=== PATIENT | male | born 1965 | race Caucasian/White ===

== ENCOUNTER 2023-06-01 13:47 | Outpatient (RCR) | payer OTHER, SELFPAY | END 2023-07-03 16:12 | disposition home or self-care (01) | LOC: OT 13:47 | PROVIDERS: PCP Specialist; Visit Provider Orthopaedic Surgery | DX: S60.411D Abrasion of left index finger, subsequent encounter (principal); S61.213D Laceration without foreign body of left middle finger without damage to nail, subsequent encounter; S67.10XD Crushing injury of unspecified finger(s), subsequent encounter; S62.623D Displaced fracture of middle phalanx of left middle finger, subsequent encounter for fracture with routine healing; S62.625D Displaced fracture of middle phalanx of left ring finger, subsequent encounter for fracture with routine healing | CPT/HCPCS: 97018; 97110; 97165; 97530 ==

== ENCOUNTER 2024-11-02 03:02 | Emergency (ER) | payer OTHER, SELFPAY ==
[2024-11-02 03:06] VITALS: BP 147/100; PULSE 79; TEMP 37; O2SAT 98; BMI 34.6
--- NOTE | 2024-11-02 03:18 | CT_ITS ---
The [address] [address] Patient Name: TAYLOR CASANOVA MRN: [id number] date: 1965 Sex: M Assigned Patient Location: ER Current Patient Location: ER Accession/Order Number: [id number] Exam Date: 11/02/2024 03:50 Report Date: 11/02/2024 04:11 At the request of: REINA MARKER Procedure: CT abdomen pelvis wo con EXAM: CT abdomen pelvis wo con HISTORY: right flank pain COMPARISON: None. TECHNIQUE: Noncontrast axial CT images through the abdomen and pelvis were obtained with coronal and sagittal reformats. Dose reduction techniques were achieved by using automated exposure control and/or adjustment of mA and/or kV according to patient size and/or use of iterative reconstruction technique. FINDINGS: There is a calcified granuloma in the right middle lobe. There is nonspecific elevation of the left hemidiaphragm with adjacent atelectasis. Abdomen: Please note that the sensitivity for detection of focal lesions or vascular disease is markedly reduced without intravenous contrast. Splenic calcifications are suggestive of prior granulomatous disease. Otherwise, the liver and spleen are unremarkable. There is no intra or extrahepatic biliary duct dilatation. The gallbladder is surgically absent. There is a 0.3 cm calculus in the mid right ureter with mild right hydroureter and hydronephrosis. There is a left renal cyst. The pancreas, adrenal glands, and bowel loops, including the appendix, are unremarkable. There is no mesenteric or retroperitoneal lymphadenopathy. There is a tiny fat-containing umbilical hernia. Pelvis: The bladder demonstrates wall thickening. The rectum is unremarkable. There is no iliac or inguinal lymphadenopathy. There is mild prostatomegaly. There is mild atherosclerotic disease. Bone windows show no aggressive osseous lesions. CT/CT abdomen pelvis wo con IMPRESSION: 1. There is a 0.3 cm calculus in the mid right ureter with mild right hydroureter and hydronephrosis. 2. Normal appendix. 3. Mild prostatomegaly. 4. Urinary bladder wall thickening which could be secondary to chronic outlet obstruction from the prostatomegaly; however, please correlate with urinalysis for infection. Electronically authenticated by: Aleah RHODES Date: 11/02/2024 04:11
[2024-11-02] MEDS: KETOROLAC TROMETHAMINE 30 MG/ML VIAL IVP (03:39)
[2024-11-02] MEDS: 0.9 % SODIUM CHLORIDE 1,000 ML 1000 ML IV (03:39)
--- NOTE | 2024-11-02 03:41 | ED_ITS ---
HPI HPI - Back Pain/Injury General Chief Complaint: Back Pain/Injury Stated Complaint: BACK PAIN Time Seen by Provider: 11/02/24 03:09 Source: patient Mode of arrival: walk-in Limitations: no limitations History of Present Illness HPI Narrative: 59-year-old male with a history of kidney stones presents for evaluation of right low back pain. The patient states the pain started several days. It started in his lower abdomen. He states it is not currently in his lower abdomen but when he does turn over in bed it shoots into his lower abdomen and feels like it moves. He denies any nausea or vomiting. He denies any change in his urine. He denies any injury. 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 He does not recall any in jury. He states the pain feels like your back feels when you have been driving for a long period of time it is an aching sensation. It does not radiate into his buttocks or down his legs. There is no pain on the left side of his back or in the remainder of his abdomen. The pain does not radiate into his testicles. He denies any chest pain. He states he has had ongoing shortness of breath sin ce having influenza last spring but this is unchanged. He does not smoke. Related Data Home Medications ?Medication ?Instructions ?Recorded ?Confirmed atorvastatin 10 mg tablet mg 11/02/24 losartan 50 mg-hydrochlorothiazide tab 11/02/24 12.5 mg tablet Allergies Allergy/AdvReac Type Severity Reaction Status Date / Time No Known Drug Allergies Allergy Verified 11/02/24 03:10 Opioid HPI Opioid Management Most Recent Opioid Data: No Data to Display Review of Systems ROS Status of ROS 10 or more systems reviewed and unremark able except as noted in history and below PFSH PFSH Social History Little interest or pleasure in doing things: not at all Feeling down, depressed, or hopeless: not at all Exam Narrative Exam Narrative: Vital signs and Nursing Notes reviewed: Patient is afebrile with a normal pulse, blood pressure is elevated at 147/100, he is not hypoxic with pulse ox of 98% on room air General: Awake, alert, oriented, no acute distress, lying comfortably on the stretcher-he moves easily about the stretcher without any sign of distress HEENT: Normocephalic atraumatic, mucous membranes are moist and pink, eyes are clear, normal conjunctiva, vision is grossly intact Chest: Lungs are clear to auscultation with good air entry, there is no wheezing rhonchi or rales appreciated no accessory muscle use, patient is speaking in complete sentences-no chest wall tenderness to palpation CVS: Regular rate and rhythm S1-S2, no murmurs rubs or gallops, pulses are brisk and equal bilaterally ABD: Soft, nondistended, nontender, no rebound guarding or rigidity, bowel sounds are normal, no pulsatile masses appreciated, no reproducible tenderness in the upper or lower abdomen. Musc: No midline bony vertebral tenderness, there is some mild tenderness in the left lateral lumbar region. There is no skin rash in this area. No appreciable muscle spasm Extremities: Moving all extremities, no lower extremity tenderness or swelling noted, negative Homans' sign, pulses are brisk and equal bilaterally Skin: Skin is tanned and mildly red, patient is currently tanning for an upcoming vacation Neuro: No focal deficits Constitutional Vital Signs, click to edit/add: Last Vital Signs Temp 98.6 F 11/02/24 03:06 Pulse 79 11/02/24 03:06 Resp 16 11/02/24 03:06 BP 149/85 H 11/02/24 03:48 Pulse Ox 98 11/02/24 03:06 O2 Del Method Room Air 11/02/24 03:06 Course Vital Signs Vital signs: Vital Signs Temperature 98.6 F 11/02/24 03:06 Pulse Rate 79 11/02/24 03:06 Respiratory Rate 16 11/02/24 03:06 Blood Pressure 147/100 H 11/02/24 03:06 Pulse Oximetry 98 11/02/24 03:06 Oxygen Delivery Method Room Air 11/02/24 03:06 Temperature 98.6 F 11/02/24 03:06 Pulse Rate 79 11/02/24 03:06 Respiratory Rate 16 11/02/24 03:06 Blood Pressure 149/85 H 11/02/24 03:48 Pulse Oximetry 98 11/02/24 03:06 Oxygen Delivery Method Room Air 11/02/24 03:06 MDM - Back Pain/Injury MDM Narrative Medical decision making narrative: This 59-year-old male, non-smoker with a history of hypertension presents for evaluation of several days of pain in his right lower back. He has used Tylenol recently but had a hard time sleeping tonight due to the pain. He states when he rolls over in bed he feels like the pain moves into his right lower quadrant. He states the pain started in his right lower quadrant and has since moved to the right low back. There is no radiation into his buttocks or legs. He has no chest pain dizziness or syncope. His physical exam is benign with some mild tenderness in the right lower lateral lumbar region. There was no abdominal tenderness. His neuroexam is normal. An IV is placed and routine labs are ordered. There is large blood with 10-20 red blood cells per high-power field in his urine but the urine does not show any sign of infection. He has a normal white count and hemoglobin. Electrolytes are normal with the exception of a mildly elevated creatinine at 1.51. Liver function tests are normal. CT scan shows a 3 mm stone in the left distal ureter with mild hydroureter and hydronephrosis. The results of the labs and CT scan were discussed with the patient and his . He states his pain is improved but he is still having some degree of pain and will be medicated with a dose of [place] and Zofran prior to discharge. He will be discharged home with prescription for [place] Zofran and Flomax with recommendation for close follow-up with his family physician, straining his urine and return for worsening symptoms or any concerns. Medical Records Medical records narrative: [place] [address] CT Scan Report Signed Patient: TAYLOR CASANOVA MR#: [id number] : 1965 Acct:[id number] Age/Sex: 59 / M ADM Date: 11/02/24 Loc: ER Attending Dr: Ordering Physician: Irma Tucker Date of Service: 11/02/24 Procedure(s): CT abdomen pelvis wo con Accession Number(s): [id number] cc: Lottie Rocha M.D.~ The [place] [id number] Patient Name: TAYLOR CASANOVA MRN: [id number] date: 1965 Sex: M Assigned Patient Location: ER Current Patient Location: ER Accession/Order Number: [id number] Exam Date: 11/02/2024 03:50 Report Date: 11/02/2024 04:11 At the request of: IRMA MARKER Procedure: CT abdomen pelvis wo con EXAM: CT abdomen pelvis wo con HISTORY: right flank pain COMPARISON: None. TECHNIQUE: Noncontrast axial CT images through the abdomen and pelvis were obtained with coronal and sagittal reformats. Dose reduction techniques were achieved by using automated exposure control and/or adjustment of mA and/or kV according to patient size and/or use of iterative reconstruction technique. FINDINGS: There is a calcified granuloma in the right middle lobe. There is nonspecific elevation of the left hemidiaphragm with adjacent atelectasis. Abdomen: Please note that the sensitivity for detection of focal lesions or vascular disease is markedly reduced without intravenous contrast. Splenic calcifications are suggestive of prior granulomatous disease. Otherwise, the liver and spleen are unremarkable. There is no intra or extrahepatic biliary duct dilatation. The gallbladder is surgically absent. There is a 0.3 cm calculus in the mid right ureter with mild right hydroureter and hydronephrosis. There is a left renal cyst. The pancreas, adrenal glands, and bowel loops, including the appendix, are unremarkable. There is no mesenteric or retroperitoneal lymphadenopathy. There is a tiny fat-containing umbilical hernia. Pelvis: The bladder demonstrates wall thickening. The rectum is unremarkable. There is no iliac or inguinal lymphadenopathy. There is mild prostatomegaly. There is mild atherosclerotic disease. Bone windows show no aggressive osseous lesions. CT/CT abdomen pelvis wo con IMPRESSION: 1. There is a 0.3 cm calculus in the mid right ureter with mild right hydroureter and hydronephrosis. 2. Normal appendix. 3. Mild prostatomegaly. 4. Urinary bladder wall thickening which could be secondary to chronic outlet obstruction from the prostatomegaly; however, please correlate with urinalysis for infection. Electronically authenticated by: Aleah RHODES Date: 11/02/2024 04:11 Lab Data Labs: Lab Results 11/02/24 11/02/24 Range/Units 03:35 03:41 WBC 11.3 H (4.0-11.0) 10^3/uL RBC 5.48 (4.70-6.10) 10^6/uL Hgb 16.2 (14.0-18.0) g/dL Hct 48.0 (42.0-54.0) % MCV 87.6 (80.0-94.0) fL MCH 29.6 (25.9-34.0) pg MCHC 33.8 (29.9-35.2) g/dL RDW 12.9 (11.0-15.0) % Plt Count 209 (150-450) 10^3/uL MPV 11.2 (9.5-13.5) fL Neut % (Auto) 63.8 (43.0-75.0) % Lymph % (Auto) 22.7 (20.5-60.0) % [place] % (Auto) 7.4 (1.7-12.0) % Eos % (Auto) 4.0 (0.9-7.0) % Baso % (Auto) 0.6 (0.2-2.0) % Neut # (Auto) 7.2 H (1.4-6.5) 10^3/uL Lymph # (Auto) 2.6 (1.2-3.8) 10^3/uL [place] # (Auto) 0.8 (0.3-0.8) 10^3/uL Eos # (Auto) 0.5 (0.0-0.7) 10^3/uL Baso # (Auto) 0.1 (0.0-0.1) 10^3/uL Abs Immat Gran (auto) 0.17 H (0.00-0.03) 10^3/uL Imm/Tot Granulo (auto) 1.5 H (0.0-0.5) % Sodium 140 (136-145) mmol/L Potassium 3.7 (3.5-5.1) mmol/L Chloride 105 (98-107) mmol/L Carbon Dioxide 24.3 (21.0-32.0) mmol/L Anion Gap 14.4 BUN 15.0 (7.0-18.0) mg/dL Creatinine 1.51 H (0.70-1.30) mg/dL Est GFR ( Amer) 58 L (>=60 mL/min/1.73m^2) Est GFR (Non-Af Amer) 48 L (>=60 mL/min/1.73m^2) BUN/Creatinine Ratio 9.9 Glucose 130 H (74-106) mg/dL Calcium 9.1 (8.5-10.1) mg/dL Total Bilirubin 0.4 (0.2-1.0) mg/dL AST <5 L (15-37) U/L ALT 19 (16-63) U/L Alkaline Phosphatase 73 (46-116) U/L Total Protein 7.2 (6.4-8.2) g/dL Albumin 4.4 (3.4-5.0) g/dL Globulin 2.8 g/dL Albumin/Globulin Ratio 1.6 Urine Color Yellow (YELLOW) Urine Clarity Clear (CLEAR) Urine pH 5.5 (5.0-9.0) Ur Specific [place] >=1.030 A (1.005-1.025) Urine Protein Trace (NEG/TRACE) mg/dL Urine Glucose (UA) Negative (NEGATIVE) mg/dL Urine Ketones Negative (NEGATIVE) mg/dL Urine Occult Blood Large A (NEGATIVE) Urine Nitrite Negative (NEGATIVE) Urine Bilirubin Negative (NEGATIVE) Urine Urobilinogen 0.2 (0.2-1.0) EU/dL Ur Leukocyte Esterase Negative (NEGATIVE) Urine RBC 10-20 A (0-2) #/HPF Urine WBC 0-2 A (NONE SEEN) #/HPF Ur Squamous Epith Cells Rare (NONE/RARE) #/LPF Urine Crystals Seen A (None Seen) #/HPF Calcium Oxalate Crystal Few Urine Bacteria None seen (NONE SEEN) #/HPF Urine Casts None seen (NONE SEEN) #/LPF Urine Mucus Small A (NONE SEEN) Ur Culture Indicated? No Discharge Plan Discharge Chief Complaint: Back Pain/Injury Clinical Impression: Kidney stone on right side Prescriptions / Home Meds: No Action atorvastatin 10 mg tablet losartan-hydrochlorothiazide 50-12.5 mg tablet Print Language: Indonesian Referrals: Lottie Rocha MD [Primary Care Provider] - 1 week
[2024-11-02 03:48] VITALS: BP 149/85
[2024-11-02 03:53] LABS: Basophils Absolute Auto 0.1 10^3/uL (0.0-0.1); Basophils Percent Auto 0.6 % (0.2-2.0); Eosinophils Absolute Auto 0.5 10^3/uL (0.0-0.7); Hemoglobin 16.2 g/dL (14.0-18.0); Immature Granulocytes Abs Auto 0.17 10^3/uL (0.00-0.03); Immature Granulocytes Pct Auto 1.5 % (0.0-0.5); Lymphocytes Absolute Auto 2.6 10^3/uL (1.2-3.8); Lymphocytes Percent Auto 22.7 % (20.5-60.0); Mean Corpuscular HGB Conc 33.8 g/dL (29.9-35.2); Mean Corpuscular Hemoglobin 29.6 pg (25.9-34.0); Mean Corpuscular Volume 87.6 fL (80.0-94.0); Mean Platelet Volume 11.2 fL (9.5-13.5); Monocytes Absolute Auto 0.8 10^3/uL (0.3-0.8); Monocytes Percent Auto 7.4 % (1.7-12.0); Neutrophils Absolute Auto 7.2 10^3/uL (1.4-6.5); Neutrophils Percent Auto 63.8 % (43.0-75.0); Platelet Count 209 10^3/uL (150-450); Red Blood Count 5.48 10^6/uL (4.70-6.10); Red Cell Distribution Width 12.9 % (11.0-15.0); White Blood Count 11.3 10^3/uL (4.0-11.0)
[2024-11-02 03:54] LABS: Bilirubin Urine NEGATIVE (NEGATIVE); Blood Urine LARGE (NEGATIVE); Clarity Urine CLEAR (CLEAR); Color Urine YELLOW (YELLOW); Glucose Urine UA NEGATIVE (NEGATIVE); Ketones Urine NEGATIVE (NEGATIVE); Leukocyte Esterase Urine NEGATIVE (NEGATIVE); Nitrite Urine NEGATIVE (NEGATIVE); Protein Urine TRACE mg/dL (NEG/TRACE); Specific Gravity Urine >=1.030 (1.005-1.025); Urobilinogen Urine 0.2 EU/dL (0.2-1.0); pH Urine 5.5 (5.0-9.0)
[2024-11-02 04:07] LABS: Bacteria Urine NONE SEEN #/HPF (NONE SEEN); Calcium Oxalate Crystals Urine FEW; Cast Seen? NONE SEEN #/LPF (NONE SEEN); Crystals Seen? Seen #/HPF (None Seen); Mucus Urine SMALL (NONE SEEN); Squamous Epithelial Cell Urine RARE #/LPF (NONE/RARE); Urine Culture Indicated NO; WBC Urine 0-2 #/HPF (NONE SEEN)
[2024-11-02 04:08] LABS: Alanine Aminotransferase 19 U/L (16-63); Albumin Globulin Ratio 1.6; Albumin Level 4.4 g/dL (3.4-5.0); Alkaline Phosphatase 73 U/L (46-116); Anion Gap 14.4; Aspartate Amino Transferase <5 U/L (15-37); BUN Creatinine Ratio 9.9; Bilirubin Total 0.4 mg/dL (0.2-1.0); Calcium 9.1 mg/dL (8.5-10.1); Carbon Dioxide 24.3 mmol/L (21.0-32.0); Chloride 105 mmol/L (98-107); Estimated GFR (African America 58 (>=60 mL/min/1.73m^2); Estimated GFR (Non-African Ame 48 (>=60 mL/min/1.73m^2); Globulin 2.8 g/dL; Glucose 130 mg/dL (74-106); Potassium 3.7 mmol/L (3.5-5.1); Sodium 140 mmol/L (136-145); Total Protein 7.2 g/dL (6.4-8.2)
[2024-11-02] MEDS: ONDANSETRON 4 MG RAPDIS TABLET SL (05:01)
[2024-11-02] MEDS: HYDROCODONE/ACET 5-325 MG TABLET 2 TAB PO (05:01)
[2024-11-02] MEDS: HYDROCODONE/ACET 5-325 MG TABLET 1 TAB PO (05:01)
== END 2024-11-02 05:08 | disposition home or self-care (01) ==
PROVIDERS: Emergency Provider Emergency Medicine; PCP Family Medicine
DX: N13.2 Hydronephrosis with renal and ureteral calculous obstruction (principal); Z87.442 Personal history of urinary calculi; Z90.49 Acquired absence of other specified parts of digestive tract; I10 Essential (primary) hypertension
CPT/HCPCS: 36415; 74176; 80053; 81001; 85025; 96374; 99284; J1885; Q0162

== ENCOUNTER 2024-12-30 06:32 | Outpatient (OUT) | payer OTHER, SELFPAY ==
--- OUTSIDE RECORDS SUMMARY | 2024-12-30 06:36 | XMS_ITS | CCD ---
Author Organization [facility] Care Team Providers Care Supervisor [employer] Name Role Phone DO Piter Chairez Attending Provider MD Precious Marquez Primary Care Provider PRECIOUS MARQUEZ Primary Care Physician Precious MARQUEZ Referring Unavailable NILL, Josue Loya Attending Unavailable NILL, Josue Loya Referring Unavailable NILL, Josue Loya Attending Unavailable NILL, Josue Loya Admitting Unavailable MARQUEZ, Precious Valdez Referring Unavailable NILL, Josue Loya Attending Unavailable MARQUEZ, DR PRECIOUS Valdez Consulting Unavailable MARQUEZ, DR PRECIOUS Valdez Primary Care Unavailable MARQUEZ, DR PRECIOUS Valdez Admitting Unavailable MARQUEZ, DR PRECIOUS Valdez Attending Unavailable MARQUEZ, DR PRECIOUS Valdez Primary Care Unavailable MARQUEZ, DR PRECIOUS Valdez Admitting Unavailable MARQUEZ, DR PRECIOUS Valdez Attending Unavailable MARQUEZ, DR PRECIOUS Valdez Consulting Unavailable Esha Valladares Unavailable MD Precious Marquez Primary Care Provider Barbara, IT SECURITY MANAGER- Shyla Valdez Emergency Provider Shyla Jimenez Admitting Unavailable Shyla Jimenez Attending Unavailable Precious Marquez Primary Care Unavailable Precious Marquez Primary Care Unavailable Aryan Chairez Admitting Unavailab Aryan Landaverde Attending Unavailab Lottie Skinner Unavailable Pascual OREILLY Attending Unavailable Allergies Allergy Classification Reported Allergen(s) Allergy Type Date of Onset Reaction(s) Facility (2 sources) Lisinopril; Translations: [lisinopril] Drug Allergy Cough (finding) [facility] Medications Current Medications Medication Drug Class(es) Dates Sig (Normalized) Sig (Original) atorvastatin 10 mg oral tablet (12 sources) HMG-CoA Reductase Inhibitor Start: 12-04-2023 End: 10-03-2024 take 1 tablet by mouth once daily Atorvastatin 10 mg tablet Active 10 MG PO Daily October 03, 2024 4:06pm take 1 tablet by diane th every twenty-four hours Atorvastatin Calcium 10 MG 1 tablet Oral Once a day for 90 days Active Ciprofloxacin-Dexamethasone 0.3-0.1 % drops,suspension (1 source) Start: 12-29-2024 Ciprofloxacin-Dexamethasone 0.3-0.1 % drops,suspension Active 4 DROPS EAR-BOTH Twice daily 7.5 December 29, 2024 12:00am hydroCHLOROthiazide 12.5 mg / losartan potassium 50 mg oral tablet (13 sources) Thiazide Diuretic, Angiotensin 2 Receptor Parveen Start: 12-04-2023 End: 12-05-2024 take 1 tablet by mouth once daily Losartan-Hydrochlorothiazide 50-12.5 mg tablet Active 1 TAB PO Daily December 05, 2024 4:24pm Start: 05-28-2022 take 1 tablet by diane th once daily hydrochlorothiazide-losartan 12.5 mg-50 mg Tab 1 tab(s), Oral, Daily, Refill(s) 0, High blood pressure Start Date: 05/28/22 Status: Ordered Losartan Potassi um-HCTZ 50-12.5 MG Oral for 90 Days Active omeprazole 40 mg delayed release oral capsule (1 source) Proton Pump Inhibitor Start: 05-28-2022 omeprazo le 40 mg Cap-DR 40 mg = 1 cap(s), Oral, Daily, Refills(s) 0, Control of stomach acid Start Date: 05/28/22 Status: Ordered Completed/Discontinued Medications Medication Drug Class(es) Dates Sig (Normalized) Sig (Original) azithromycin 250 mg oral tablet (1 source) Macrolide Antimicrobial Start: 12-04-2023 End: 12-29-2024 Azithromycin 250 mg tablet Discontinued 0 PO .COMPLEX December 04, 2023 1:00am December 29, 2024 9:21am For 250 mg dose pack: take 500 mg today (day 1), then 250 mg for 4 days (days 2-5) PO benzonatate 200 mg oral capsule (1 source) Non-narcotic Antitussive Start: 12-04-2023 End: 12-29-2024 Benzonatate 200 mg capsule Discontinued 200 MG PO 2-3 TIMES PER DAY as needed for cough December 04, 2023 1:00am December 29, 2024 9:21am cephalexin 500 mg oral capsule (4 sources) Cephalosporin Antibacterial Start: 04-17-2023 End: 12-29-2024 take 1 capsule by mouth twice daily Cephalexin 500 mg capsule Discontinued 500 MG PO Twice daily 14 April 17, 2023 12:00am December 29, 2024 9:21am colestipol hydrochloride 1000 mg oral tablet (11 sources) Bile Acid Sequestrant Start: 12-04-2023 End: 12-29-2024 take 2 tablets by mouth once daily Colestipol 1 gram tablet Discontinued 1 GM PO Daily December 04, 2023 1:00am December 29, 2024 9:21am FreeTextSi tablets Orally Once a day; Note: Source Status: Taking; Provider: Blaine Balbuena ( ) Start: 05-28-2022 [facility] Colestid 1 g oral tablet 1 gm = 1 tab(s), Oral, Daily, Refills(s) 0, High cholesterol Start Date: 05/28/22 Status: [facility] Colestipol HCl 1 GM 2 tablets Orally Once a day Active take 2 tablets by mo [facility] every twenty-four hours Colestipol HCl 1 GM 2 tablets Orally Once a day Active ibuprofen 800 mg oral tablet (8 sources) Nonsteroidal Anti-inflammatory Drug Start: 09-12-2024 End: 12-29-2024 take 1 tablet by mouth three times daily as needed for pain Ibuprofen 800 mg tablet Discontinued 800 MG PO Three times daily as needed for pain 270 90 September 12, 2024 9:12am December 29, 2024 9:36am Start: 02-17-2024 End: 09-12-2024 take 1 tablet by mouth twice daily at mealtime as needed Ibuprofen 800 mg tablet Discontinued 0 .ROUTE .COMPLEX 60 February 17, 2024 8:59am September 12, 2024 9:13am TAKE 1 TABLET BY MOUTH TWICE A DAY WITH FOOD OR MILK NEEDED FOR 30 DAYS Start: 12-04-2023 End: 02-17-2024 take 1 tablet by mouth twice daily at mealtime Ibuprofen 800 mg tablet Discontinued 800 MG PO Twice daily with meals December 04, 2023 1:00am February 17, 2024 8:59am FreeTextSi tablet with food or milk as needed Orally Twice a day; Note: Source Status: Taking; Refills: 2; Qty: 180 Tablet; Provider: Blaine Loya Start: 09-08-2023 take 1 tablet by diane th twice daily at mealtime as needed Ibuprofen 800 MG 1 tablet with food or milk as needed Orally Twice a day for 90 days Aug, Active Problems Active Problems Problem Classification Problem Date Documented Date Episodic/Chronic Chronic obstructive pulmonary disease and bronchiectasis (1 source) Bronchitis; Translations: [Bronchitis, not specified as acute or chronic] 12-07-2023 Episodic Crushing injury or internal injury (9 sources) Crushing injury of unspecified finger(s), initial encounter; Translations: [Closed crush injury, finger, multiple] Episodic Disorders of lipid metabolism (13 sources) Pure hypercholesterolemia, unspecified; Translations: [Pure hypercholesterolemia] Onset: 09-25-2022 Chronic Esophageal disorders (1 source) Gastroesophageal reflux disease 05-28-2022 Chronic Essential hypertension (10 sources) Hypertensive disorder; Translations: [Essential hypertension] 06-03-2015 Chronic Fracture of upper limb (20 sources) Displaced fracture of middle phalanx of left middle finger, initial encounter for closed fracture; Translations: [Displaced fracture of middle phalanx of left ring finger, initial encounter for closed fracture] Episodic Comment on above: Problem List clean-u p per request of Phys. EHR Cmte Noninfectious gastroenteritis (1 source) Chronic diarrhea 05-28-2022 Episodic Open wounds of extremities (16 sources) Laceration without foreign body of left middle finger without damage to nail, initial encounter; Translations: [Laceration of finger] Episodic Comment on above: Problem List clean-u p per request of Phys. EHR Cmte Other ear and sense organ disorders (1 source) Otitis externa; Translations: [Unspecified otitis externa, unspecified ear] 12-29-2024 Chronic Other ear and sense organ disorders (1 source) Unspecified otitis externa, unspecified ear; Translations: [Infective otitis externa, unspecified] 12-29-2024 Chronic Other nervous system disorders (9 sources) Carpal tunnel syndrome; Translations: [Carpal tunnel syndrome, unspecified upper limb] Chronic Other nutritional; endocrine; and metabolic disorders (1 source) Body mass index 30+ - obesity 06-03-2022 Chronic Other screening for suspected conditions (not mental disorders or infectious disease) (5 sources) Screening for malignant neoplasm of colon done; Translations: [Encounter for screening for malignant neoplasm of colon] Onset: 06-16-2022 Episodic Sprains and strains (1 source) Rupture of anterior cruciate ligament 12-15-2011 Episodic Substance-related disorders (1 source) Smoker 05-28-2022 Chronic Comment on above: Added secondary to d ocumentation in Social History. Superficial injury; contusion (9 sources) Abrasion of left index finger, initial encounter; Translations: [Abrasion of left index finger] Episodic Unclassified (1 source) Patient encounter status 06-03-2022 Unclassified (1 source) Laceration without foreign body of left middle finger without damage to nail, initial encounter; Translations: [Laceration without foreign body of left middle finger without damage to nail, initial encounter] Onset: 04-17-2023 Past or Other Problems Problem Classification Problem Date Documented Date Episodic/Chronic Other connective tissue disease (1 source) Other symptoms and signs involving the musculoskeletal system; Translations: [Other symptoms and signs involving the musculoskeletal system] Onset: 06-25-2022 Episodic Results Test Name Value Interpretation Reference Range Facility Basophils Auto (Bld) [#/Vol] on 11-02-2024 Basophils (Bld) [#/Vol] Automated basophil count 0.0-0.1 [facility] Basophils/100 WBC Auto (Bld) on 11-02-2024 Basophils/100 WBC (Bld) Automated basophil % 0.2-2.0 [facility] Eosinophils/100 WBC Auto (Bl d)on 11-02-2024 Eosinophils/100 WBC (Bld) Automated eosinophil % 0.9-7.0 [facility] Erythrocyte distribution wid th Auto (RBC) [Ratio]on 11-02-2024 Erythrocyte distribution width (RBC) [Ratio] Erythrocyte distribution width [Ratio] by Automated count 11.0-15.0 [facility] Estimated glomerular filtrat ion rate (GFR) non- Americanon 11-02-2024 GFR/1.73 sq M.predicted among non-blacks MDRD (S/P/Bld) [Vol rate/Area] Estimated glomerular filtration rate (GFR) non- Low >=60 mL/min/1.73m 2 [facility] Globulin Calc (S) [Mass/Vol] on 11-02-2024 Globulin (S) [Mass/Vol] Serum globulin measurement by calculation (mass/volume) [facility] Hematocrit Auto (Bld) [Volum e fraction]on 11-02-2024 Hematocrit (Bld) [Volume fraction] Hematocrit [Volume Fraction] of Blood by Automated count 42.0-54.0 [facility] Hemoglobin [Mass/volume] in Bloodon 11-02-2024 Hemoglobin (Bld) [Mass/Vol] Hemoglobin [Mass/volume] in Blood 14.0-18.0 [facility] Laboratory - Chemistry and C hemistry - challengeon 11-02-2024 Albumin [Mass/Vol] 4.4 g/dL 3.4-5.0 [facility] ALP [Catalytic activity/Vol] 73 U/L 46-116 [facility] ALT [Catalytic activity/Vol] 19 U/L 16-63 [facility] AST [Catalytic activity/Vol] U/L Low 15-37 [facility] Bilirubin [Mass/Vol] 0.4 mg/dL 0.2-1.0 [facility] Calcium [Mass/Vol] 9.1 mg/dL 8.5-10.1 [facility] Chloride [Moles/Vol] 105 mmol/L 98-107 [facility] CO2 [Moles/Vol] 24.3 mmol/L 21.0-32.0 [facility] Creatinine [Mass/Vol] 1.51 mg/dL High 0.70-1.30 [facility] GFR/1.73 sq M.predicted MDRD (S/P/Bld) [Vol rate/Area] 58 mL/min/{1.73_m2} Low >=60 mL/min/1.73m 2 [facility] Glucose [Mass/Vol] 130 mg/dL High 74-106 [facility] Potassium [Moles/Vol] 3.7 mmol/L 3.5-5.1 [facility] Protein [Mass/Vol] 7.2 g/dL 6.4-8.2 [facility] Sodium [Moles/Vol] 140 mmol/L 136-145 [facility] Urea nitrogen [Mass/Vol] 15.0 mg/dL 7.0-18.0 [facility] Urea nitrogen/Creatinine [Mass ratio] 9.9 mg/mg [facility] Bilirubin Ql (U) Negative NEGATIVE [facility] Glucose (U) [Mass/Vol] Negative NEGATIVE [facility] Ketones Ql (U) Negative NEGATIVE [facility] pH (U) 5.5 [pH] 5.0-9.0 [facility] Specific gravity (U) [Rel density] >=1.030 Abnormal 1.005-1.025 [facility] Urobilinogen Qn (U) 0.2 {Shawn'U}/dL 0.2-1.0 [facility] Laboratory - Hematology and Cell countson 11-02-2024 Immature granulocytes/100 WBC (Bld) 1.5 % High 0.0-0.5 [facility] Laboratory - Specimen inform ationon 11-02-2024 Appearance (U) CLEAR CLEAR [facility] Color (U) YELLOW YELLOW [facility] Laboratory - Urinalysison Leukocyte esterase Test strip Ql (U) Negative NEGATIVE [facility] Mucus Ql (Urine sed) SMALL Abnormal NONE SEEN [facility] Nitrite Ql (U) Negative NEGATIVE [facility] Protein Ql (U) TRACE mg/dL NEG/TRACE [facility] Leukocytes [#/volume] correc rita for nucleated erythrocytes in Blood by Automated counon 11-02-2024 WBC corrected for nucl RBC Auto (Bld) [#/Vol] Leukocytes [#/volume] corrected for nucleated erythrocytes in Blood by Automated coun High 4.0-11.0 [facility] Lymphocytes Auto (Bld) [#/Vo l]on 11-02-2024 Lymphocytes (Bld) [#/Vol] Lymphocytes [#/volume] in Blood by Automated count 1.2-3.8 [facility] Lymphocytes/100 WBC Auto (Bl d)on 11-02-2024 Lymphocytes/100 WBC (Bld) Lymphocytes/100 leukocytes in Blood by Automated count 20.5-60.0 [facility] MCH Auto (RBC) [Entitic mass ]on 11-02-2024 MCH (RBC) [Entitic mass] MCH [Entitic mass] by Automated count 25.9-34.0 [facility] MCHC Auto (RBC) [Mass/Vol]on 11-02-2024 MCHC (RBC) [Mass/Vol] MCHC [Mass/volume] by Automated count 29.9-35.2 [facility] MCV Auto (RBC) [Entitic vol] on 11-02-2024 MCV (RBC) [Entitic vol] MCV [Entitic volume] by Automated count 80.0-94.0 [facility] Monocytes Auto (Bld) [#/Vol] on 11-02-2024 Monocytes (Bld) [#/Vol] Automated blood monocyte count 0.3-0.8 [facility] Monocytes/100 WBC Auto (Bld) on 11-02-2024 Monocytes/100 WBC (Bld) Automated monocyte % 1.7-12.0 [facility] Neutrophils Auto (Bld) [#/Vo l]on 11-02-2024 Neutrophils (Bld) [#/Vol] Neutrophils [#/volume] in Blood by Automated count High 1.4-6.5 [facility] Neutrophils/100 WBC Auto (Bl d)on 11-02-2024 Neutrophils/100 WBC (Bld) Automated neutrophil % 43.0-75.0 [facility] No Panel Informationon 11-02 Eosinophils # (Auto) 0.5 10 3/uL 0.0-0.7 [facility] Immature Granulocyte # (Auto) 0.17 10 3/uL High 0.00-0.03 [facility] Urine Bacteria NONE SEEN #/HPF NONE SEEN [facility] Urine Calcium Oxalate Crystals FEW [facility] Urine Culture Reflexed NO [facility] Urine Occult Blood LARGE Abnormal NEGATIVE [facility] Urine Other Casts NONE SEEN #/LPF NONE SEEN [facility] Urine Other Crystals Seen #/HPF Abnormal None Seen [facility] Urine RBC 10-20 #/HPF Abnormal 0-2 [facility] Urine Squamous Epithelial Cells RARE #/LPF NONE/RARE [facility] Urine WBC 0-2 #/HPF Abnormal NONE SEEN [facility] Platelet mean volume Auto (B ld) [Entitic vol]on 11-02-2024 Platelet mean volume (Bld) [Entitic vol] Platelet mean volume [Entitic volume] in Blood by Automated count 9.5-13.5 [facility] Platelets Auto (Bld) [#/Vol] on 11-02-2024 Platelets (Bld) [#/Vol] Platelets [#/volume] in Blood by Automated count 150-450 [facility] RBC Auto (Bld) [#/Vol]on RBC (Bld) [#/Vol] Erythrocytes [#/volume] in Blood by Automated count 4.70-6.10 [facility] Serum or plasma albumin/glob ulin mass ratioon 11-02-2024 Albumin/Globulin [Mass ratio] Serum or plasma albumin/globulin mass ratio [facility] Serum or plasma anion gap de terminationon 11-02-2024 Anion gap [Moles/Vol] Serum or plasma anion gap determination [facility] Consenton 01-20-2024 Consent [id number] 0TIFF Normal [facility] Registrationon 01-20-2024 Registration [id number]#[id number] 0TIFF Normal [facility] XR hand LT min 3V*on 023 XR hand LT min 3V* [place] [address] XRay Report Signed Patient: Taylor Casanova MR#: [id number] 46 : 1965 Acct:[id number] Age/Sex: 57 / M ADM Date: 04/17/23 Loc: ER Room: Type: [facility] ER Attending Dr: Copies to: DEMETRIUS Sanchez Ordering Provider: DEMETRIUS Sanchez Date of Service: 04/17/23 XR/XR hand LT min 3V*: Skin/Abscess/Foreign Body 3 views left hand plain film COMPARISON: None HISTORY: Left hand injury. Third and fourth digit pain ACUTE FINDINGS: Fractures of the volar plates of the bases of the third and fourth metatarsal phalanges identified. DEGENERATIVE CHANGE: Mild SOFT TISSUE FINDINGS: Unremarkable JOINT EFFUSION: None POSTOP CHANGES: None BONY MINERALIZATION: Adequate XR/XR hand LT min 3V* IMPRESSION: Volar plate fractures of the bases of the third and fourth middle phalanges. Impression dictated by: Pascual Che M.D.04/17/2023 12:57 PM Dictation Location: [place] [address] Transcribed By: [facility] 04/17/23 1257 Dictated By: Pascual Che DO 04/17/23 1252 Signed By: 04/17/23 1257 Normal [facility] LIPID PROFILEon 09-25-2022 CHOL-HDL RATIO NORM SEE BELOW Normal [facility] Comment on above: Result Comment: 3.3 - 4.4 LOW RISK 4.4 - 7.1 AVERAGE RISK 7.1 - 11.0 MODERATE RISK >11.0 HIGH RISK Performed By: #### L IPID #### [facility] [address] [place] [address] [address] Aris Baltazar Cholesterol [Mass/Vol] 148 mg/dL Normal <=200 [facility] Comment on above: Performed By: #### L IPID #### [facility] [address] [address] [address] Aris Baltazar Cholesterol in HDL [Mass/Vol] 56 mg/dL Normal 40-60 [facility] Comment on above: Performed By: #### L IPID #### [facility] [address] [address] [address] Aris Baltazar Cholesterol in LDL [Mass/Vol] 68.0 mg/dL Normal [facility] Comment on above: Performed By: #### L IPID #### [facility] [address] [address] [address] Aris Baltazar Cholesterol.total/Ch olesterol in HDL [Mass ratio] 2.6 {ratio} Normal [facility] Comment on above: Performed By: #### L IPID #### [facility] [address] [address] [address] Aris Baltazar HDL NORMAL > or = 60 mg/dl - LO W CARDIOVASCULAR RISK <40 mg/dl - HIGH CARDIOVASCULAR RISK Normal [facility] Comment on above: Performed By: #### L IPID #### [facility] [address] [address] [address] Aris Baltazar LDL CALC NORMAL SEE BELOW Normal [facility] Comment on above: Result Comment: <100 mg/dl OPTIMAL 100 - 129 mg/dl NEAR OR ABOVE OPTIMAL 130 - 159 mg/dl BORDERLINE HIGH 160 - 189 mg/dl HIGH >190 mg/dl VERY HIGH Performed By: #### L IPID #### [facility] [address] [address] [address] Aris Baltazar Triglyceride [Mass/Vol] 120 mg/dL Normal <=150 [facility] Comment on above: Performed By: #### L IPID #### [facility] [address] [address] [address] Aris Baltazar VLDL CALC 24.0 mg/dL Normal [facility] Comment on above: Performed By: #### L IPID #### [facility] [address] [place] [address] Dr. Aris Baltazar Progress Note-Physicianon Progress Note-Physician Patient: TAYLOR CASANOVA JR Age: 56 years Sex: Male : 1965 Associated Diagnoses: None Author: Aris Rodríguez Jr, DO Preoperative Information Anesthesia Preop Information NPO 8 HOURS EXCEPT GI PREP AT LEAST 4 HOURS PRIOR TO PROCEDURE Anesthesia history: Patient history: No prior anesthesia problems. Re-evaluation prior to induction: Initial evaluation reviewed: No significant change. Anesthesia results Review of Systems Cardiovascular: Negative. Respiratory: Negative. Health Status Allergies: Allergic Reactions (Selected) Severity Not Documented Lisinopril- Cough. Current medications: (Selected) Inpatient Medications Ordered Sodium Chloride 0.9% IV Talisha 1000 mL 1,000 mL: 1,000 mL, IV, 20 mL/hr, Routine, Start date 07/07/22 6:44:00 EDT, 50 hour(s), Total volume (mL): 1,000 Documented Medications Documented Colestid 1 g oral tablet: 1 gm = 1 tab(s), Oral, Daily, Refills(s) 0 hydrochlorothiazide-lo sartan 12.5 mg-50 mg Tab: 1 tab(s), Oral, Daily, Refill(s) 0 omeprazole 40 mg Cap-DR: 40 mg = 1 cap(s), Oral, Daily, Refills(s) 0, Home Medications (3) Active Colestid 1 g oral tablet 1 gm = 1 tab(s), Oral, Daily hydrochlorothiazide-lo sartan 12.5 mg-50 mg Tab 1 tab(s), Oral, Daily omeprazole 40 mg Cap-DR 40 mg = 1 cap(s), Oral, Daily Problem list: All Problems BMI 33.0-33.9,adult / SNOMED CT 827937369 / Confirmed Chronic diarrhea / SNOMED CT 690008490 / Confirmed GERD (gastroesophageal reflux disease) / SNOMED CT 558721292 / Confirmed HTN (hypertension) / SNOMED CT [id number] / Confirmed Screening for malignant neoplasm of colon / SNOMED CT 945081548 / Confirmed Resolved: Smoker / IMO [id number] Added secondary to documentation in Social History. Resolved: Tear of anterior cruciate ligament / SNOMED CT 901543329 Histories Past Medical History: Active HTN (hypertension) ([id number]) Resolved Tear of anterior cruciate ligament (462300519): Resolved. Smoker (131853): Resolved. Comments: 07/29/2015 EDT 15:30 EDT - SYSTEM, SYSTEM Added secondary to documentation in Social History. Social History Social & Psychosocial Habits Alcohol 12/15/2011 Risk Assessment: Denies Alcohol Use Substance Abuse 12/15/2011 Risk Assessment: Denies Substance Abuse Tobacco 12/15/2011 Risk Assessment: Denies Tobacco Use 06/03/2022 Tobacco Use: Never (less than 100 in l Smokeless tobacco use: Never . Physical Examination Airway: Mallampati classification: II (soft palate, fauces, uvula visible). Respiratory: Lungs are clear to auscultation. Cardiovascular: Regular rhythm. Neurologic: Alert, Oriented. Plan [place] [employer] (ASA) physical status classification: Class III. Anesthetic Preoperative Plan Anesthesia: General. . Anesthetic plan, risks, benefits, and alternatives discussed with the patient and/or family. Communication: face to face with (patient 5 minutes, Patient educated on smoking cesstation). Normal [facility] Comment on above: Result Comment: Elec tronically Signed By: Aris Rodríguez Jr, DO\.br\Date and Time Signed: 07/21/22 07:32 EDT Intra[employer] Documentson 0 07-14-2022 Intra[employer] Documents [id number]. [id number]:127 Normal [facility] Postoperative Documentson Postoperative Documents [id number]#1. 00CD:127 Normal [facility] Progress Note-Physicianon Progress Note-Physician Patient: TAYLOR CASANOVA JR Age: 56 years Sex: Male : 1965 Associated Diagnoses: None Author: Aris Rodríguez Jr, DO Postoperative Information Post Operative Note: Post Anesthesia Care Unit. Anesthetic utilized: Monitored anesthesia care. Health Status Allergies: Nonallergic Reactions (Selected) Severity Not Documented Lisinopril- Cough. Problem list: All Problems BMI 33.0-33.9,adult / SNOMED CT 977841597 / Confirmed Chronic diarrhea / SNOMED CT 176884847 / Confirmed GERD (gastroesophageal reflux disease) / SNOMED CT 735892129 / Confirmed HTN (hypertension) / SNOMED CT [id number] / Confirmed Screening for malignant neoplasm of colon / SNOMED CT 891837793 / Confirmed Resolved: Smoker / IMO [id number] Added secondary to documentation in Social History. Resolved: Tear of anterior cruciate ligament / SNOMED CT 387210708 Physical Examination Vital Signs 07/07/2022 8:25 EDT Heart Rate Monitored 64 bpm Respiratory Rate Monitored 18 br/min Systolic Blood Pressure 118 mmHg Diastolic Blood Pressure 83 mmHg Blood Pressure Location Left arm SpO2 96 % 07/07/2022 8:20 EDT Heart Rate Monitored 64 bpm Respiratory Rate Monitored 17 br/min Systolic Blood Pressure 117 mmHg Diastolic Blood Pressure 82 mmHg Blood Pressure Location Left arm SpO2 97 % 07/07/2022 8:15 EDT Heart Rate Monitored 68 bpm Respiratory Rate Monitored 15 br/min Systolic Blood Pressure 118 mmHg Diastolic Blood Pressure 85 mmHg Blood Pressure Location Left arm SpO2 96 % 07/07/2022 8:10 EDT Heart Rate Monitored 64 bpm Respiratory Rate Monitored 16 br/min Systolic Blood Pressure 112 mmHg Diastolic Blood Pressure 59 mmHg LOW Blood Pressure Location Left arm SpO2 95 % 07/07/2022 8:05 EDT Heart Rate Monitored 70 bpm Respiratory Rate Monitored 19 br/min Systolic Blood Pressure 104 mmHg Diastolic Blood Pressure 55 mmHg LOW Blood Pressure Location Left arm SpO2 97 % 07/07/2022 8:02 EDT Temperature Temporal Artery 36.2 DegC LOW Heart Rate Monitored 67 bpm Respiratory Rate Monitored 16 br/min Systolic Blood Pressure 101 mmHg Diastolic Blood Pressure 53 mmHg LOW Blood Pressure Location Left arm SpO2 94 % 07/07/2022 8:00 EDT Heart Rate Monitored 66 bpm bpm Respiratory Rate 14 br/min br/min Systolic Blood Pressure 91 mmHg mmHg Diastolic Blood Pressure 64 mmHg mmHg SpO2 98 % % 07/07/2022 7:55 EDT Heart Rate Monitored 67 bpm bpm Respiratory Rate 14 br/min br/min Systolic Blood Pressure 95 mmHg mmHg Diastolic Blood Pressure 50 mmHg mmHg SpO2 98 % % 07/07/2022 7:50 EDT Heart Rate Monitored 64 bpm bpm Respiratory Rate 18 br/min br/min Systolic Blood Pressure 106 mmHg mmHg Diastolic Blood Pressure 59 mmHg mmHg SpO2 98 % % 07/07/2022 7:45 EDT Heart Rate Monitored 69 bpm bpm Respiratory Rate 22 br/min br/min Systolic Blood Pressure 116 mmHg mmHg Diastolic Blood Pressure 80 mmHg mmHg SpO2 96 % % 07/07/2022 7:44 EDT Systolic Blood Pressure 113 mmHg mmHg Diastolic Blood Pressure 80 mmHg mmHg 07/07/2022 7:17 EDT Temperature Temporal Artery 36.2 DegC LOW Heart Rate Monitored 71 bpm Respiratory Rate Monitored 17 br/min Systolic Blood Pressure 129 mmHg Diastolic Blood Pressure 82 mmHg Blood Pressure Location Left arm SpO2 97 % Vital Signs (last 24 hrs) Last Charted Resp Rate 18 br/min (JUL 07 08:25) SBP 118 mmHg (JUL 07 08:25) DBP 83 mmHg (JUL 07 08:25) SpO2 96 % (JUL 07 08:25) Weight 95.1 kg (JUL 07 07:11) BMI 34.02 (JUL 07 07:11) Documented vital signs Pain assessment: Pain Assessment 07/07/2022 8:26 EDT Pain Symptoms Self Report No, able to self report 07/07/2022 8:10 EDT Pain Symptoms Self Report No, able to self report . General: Alert and oriented, No acute distress. Respiratory: Lungs are clear to auscultation. Cardiovascular: Normal rate, Regular rhythm. Neurologic: Normal sensory. Review / Management Condition: Stable. Assessment Anesthetic outcome No anesthetic complications noted. Adequate pain relief. TOLERATING PO INTAKE. voiding w/o diff.. No Complaint of nausea and vomiting. Plan Transfer/ Discharge: Condition stable. [facility] Comment on above: Result Comment: Elec tronically Signed By: Marcos Wright DO, Aris Marroquin\.br\Date and Time Signed: 07/10/22 12:28 EDT Coding Summary.on 07-09-2022 Coding Summary. [id number] Gh 0bWw+PGhlYWQ+QK4SMDHnO 05itDXioG2PH6cWAV3EDBH ELTTCZM5CQA1hnQP7BDjnQ 2VybiAv AkxsrEOrLM79CCp6ISD0gE fwBZrecK7nfOWiN7f0SyTz LL05mW77YEfvNYWqUuU7Ju ZpbjsgbWFy X8swXoTwnVCuZcq+PHRhYm xlIHdpZHRoPScxMDAlJyBz iJavUF5lOa6sWSQoEILasB xhcHNlOiBj w9ltOGRyXKzeIE3bhVuaG4 AjeDD3OHFiv8d5Os13wQY+ HKZiHIR7wYpnIDvkl652Pk Jfz1orTVW5 rJSyUSzpUKI0G24nx1Z9BT RgOTDnJPK8pSE0fG6qbArb nwwuA9HxkBRiNrS1FKS8pB JpaB2npEqu btbanR5gGim+T72WBT7HMD NGNY3RVfx2E2GzCdqcxHI+ LE07OGAjZZ20yGCnrEPtn2 usbTq9KwHw KWUnTGX7iJmrKPuoh5VyTD NlX46ixJEsw6K0PDEozWis hBDyNoKaxHV6cX9lXIhhhm yob8cnvqka Hqedg7poai82oR19H74xSK ysWGZgLGT6IJRhWFAqkGun px5nqZ0fLr9+OYqvo2viv9 bwxRh8YdYi RMMbozWrpRwfUMW1m4WhYb 32S5FvvRrqf9RhKnh9ak10 uJPbx6J5sFE3VDrxFPCyyL 9zTWyeVuW3 TGBcYrHjsU98xHYtZObnEy 5yyKjmhGzvAO9rLYHxpsbu VNWzhL7mZWJfpFGevRjcZJ 4wNTBpbjtm z853WnMxSTA4NCWewEDuX2 UrcM6lInZaQLOrRRQlC2Cl eVZxJQoeM826BLktHfR8GY WizzFqW9Df FWUqmGumNtI5e2Y7Hs6Xc3 DwyfljQYY3HYyrFZN3VpWb EwXlSuF9Z4GfKbj8CSKadB laQE8oC8Kk CJJjnfgbcswwwMV7IGVbNF IzmR76bHKdVTvkWa7ey1X4 v880WBYnGXPuhU91Bo5hyM ogMTBwdCBU mN9nlneig0rmkcobYfCaOG HdCDk5HHl2DFHetLtrUpGc NVV4UjA9LWT9cCJoqF9nlF osneyliG8c Oyc+U02esH5pIEM7YHJ8ev usYWEpanBeNC61YC03N2Pu PjwvdGFibGU+PGRpdiBzdH ogWG7fMwKn k1jlm6WaQItqL0YrQYXpNR skQlf2AXMrLWR1yKU1wC1e FRVgQXonq6P7qAL5W0Rxar Gjgi7tf8ni NADoULrhK44coPLiz1T8ZA QixWA9UFJvwCilUrHdcS14 Oyc+GFBydUdws2FkDzxtg3 ase1ubzJf4 YaYzTJNnxvUbuWwxJMI8k4 TeQs24O58fETteCILqJAMd TSTfUJBkfQsytq9caE4mTu 8+PGNvbCB3 jVS5wX6eYYUoJpF8SJhbS2 38KzNebQWeUrdrl9fua2op aRe0NwEfLECkqtHleGsmMV Q6x3SfZg18 P44lBHwzZUDeNDCgEHHiVT LvqApcee0zaR3aXp2+PC9j d0eeyf71oD36oBY+PHRkIH V8kMkdIAqn RXRgcH0cPKubFaD2DAQuDm GupS90kAJxYLxpQh0peTve pBgqTG2bZCFducceu576Qm Lpg7rnQJWe iJXnMJkxGWD9T64kr4V9PX PmXUMjTCA9pVN9oV5kbGgv bjogbGVmdDsgdmVydGljYW ixVMniT474 IHRvcDsnPlBhdGllbnQgTm IoZWz6P7TxXfy4EOZblAcv KC9ngDKqQBcoAx3slJowbV jwMW1rVXBt xhlwb142TtXka0oeMIUjdJ UfCMlpSEA5K63lk8G7XZEr CEEeCEH0oHT9wC2ckWebbr ogbGVmdDsg cjIzkTtoRFavGHhhT561KY RvcDsnPkJpcnRoIERhdGU6 VX62BN56vGCaw9Q9xMN5V6 BhZGRpbmct jkhqcIA3YLOaHTSmgX16Lk 4ghYgcTi4eNACeGAY6DKJx vTSfC8QsrI8pAqYyJYHiPF JhZ4LwtASr SLamS813JLoiRmF3KUOtil YaB1OyWOJzgXotLbZ6r6V8 Ig8QR3O5MV56CA50xUWtd5 V1sPT7Q5Uz FOXeojxntxgbvXJ0EYYyUH ChqD02Qk0zzPtlJf7eXDIe AJW3YMLfkFEoU0IalL1fYb AjMDAwMDAw Q1BocFAvXPpeS852BGatZa W9IKSgrvIxT6KmXRKwhGdx GvG3j7O8Od9KATs3HD04LU 47wRJch4D8 zHT2F6MxMONehqhvsbxwyU J6YLMpPATvzP74Ub4rhCxm Ke9wFXYyVAA0IWZkmIHfQ0 NzhF9tJnXq MQOuVQAfV9LmpMLxSKpxC7 44FWuzVzC2ZCOzgcKpO6Li IXGbtJimKyY3n1I2Dd1TTX LdRH12YXD7 hIS7TC99ET91Y5CjYpnvtL FibGU+PHRhYmxlIHdpZHRo ODniJMVeVbBqpHzcRZ0nQt 9yZGVyLWNv hHmdwKZoEbQvx8bgGKBaFE omBL8mlQjqA9UawFX2VFVi a9v7Aj01V28mM2EbxHN+PG TraVF1fTS4 vH3yKcQlBgN6DEnlG712Sa RjkPWwJfwsx6xuw6eprAc5 HpY5EKKkgiHzrYdbTWI9k9 AbZs98X83y IHdpZHRoPSIxNSUiIHZhbG onqh1joX8xZs8+PGNvbCB3 vNK3nW7eGcBqVrJ6SKfnX3 49InRvcCIv Lqyrj5tvl7ismCw9OxQuJP RepsXkkScpRHX6d8WxIx36 K3CgiKrdi9JcWnq8mz73iT Kvy6S5fRR1 O0NmJKPmfcdggSPquNwbID 9kWMVzcktvYAKxsF8tWBFo R8v2PtPsUuI4BMkrK7Jwkq R9PEHtpDGy EBwtUKC3U64pi9K5GTQaWV XrZLM8yYU7bI8jkSyjcqul bGVmdDsgdmVydGljYWwtYW ufN374YDTh aOqqOOVxlZ4hPIIknOKbdV vfKO2hYQAhuddfPqCHC0Aj PiUkLLoGUe4QHQwfOWjkwB Q+PHRkIHN0 rBylEYjmYPHmhT8dCMGnB3 u1AdEvQfF2HZtxK1FwFQPi svebXq44qT5rGnKsBpH4QM zyP4HggnU5 XGQbeBVgPLkwXTC4C19nt8 Z2TZQgQRAxXWI3wLJ2cF7b bGlnbjogbGVmdDsgdmVydG ljYWwtYWxp M450PGStsIvsKvNmApK4Mb V8QlA2T6RyJlg8TDJbxEsi RJ8pjGIyDDovMb8whTlnuP tnYA6oFQKq oadnYLTteU4vJDKvrPDopW isPQ5mUYMvprycx385KfNz PHH5XLOcqCXiM5XzmP5yWn AjMDAwMDAw G4BfeFCzGXrzT039NMmnTy Z5XWZsxzOyN7TqRCGjjQwd BnF8g0U6Aw27UUQANNJtne wvdGQ+PHRk JUG2wFloBOdgQGVsjO9dSH ZzM1v6AzIhCjI1BDscA5Js ADQxqlpiSc15rH5jVnPzUs J3OGaqI3Oi vlL8ZGShzWAgTYmwECC1G7 7ae7O2BIVkFQCcOFX6jKB7 kL8qgYeyfhyyrHFwkYhmgk VydGljYWwt SHhiV800TWManFevRb2svV T0W3QiIwv6GHZzhDoxJW3z vUGnQWlsPo5dfJfkaYdcSK 4wNTBpbjtw MDJsmQ1jGFFrnQYbkBsoTJ 9aVRQndkfhe734GaZjPQQ3 PJZinUFlU2RftQ8jAsOxGL OfRYHdX7Qd lIApRCvsS271ZEhdLiA7HO HkeeDaG2LeIWTvlDkgZsI7 v5N8Gs3OfIAsEKBbJC59CX 91UP69P5Xm PjwvdGFibGU+PHRhYmxlIH dpZHRoPScxMDAlJyBzdHls QP1kDn9qFYMzEDKmlWacnX ZzYiXfl9js AMGwCAfxUR8jlXecT1GpmM X9VZVyd7o6Gj89N15kN1Oe dXA+FKQauQX0oGA7zH4hQq JkWiS0NLvm A221GiSfwEElFzycq4mqd5 jmlDf4UsMyIZKmqnOfyOfq DQD8z3FqGa79U27nTJigFI RoPSIyMCUi TZQnvXvxxp4pmK7xDi8+PG MszDX2qSQ6sL3aCoBiHiK7 ZNotA047TwYzzBOtMpcrX2 3iZ3GnbIG+ WUFkItd5TFMrlUmbUD7slP WaXZoaQo9sYUY7WfAdXxUi HKpsQ5HdKOLfkfjlwadhhV O1MMPbGBNn mA99Sd8vkCopSf5yLLAqVG Y0RBLciOCqE5WmoX6jWeUe IQVyJIZhD4NuxERyTTzuO8 54PSowEtT2 JKXczqXhT1SwHTTigVagGh B3v9F1Fk1MjGklyKPmCI7q KoOqDUl7U4VhSan5TFWdzR ieUL8zpQXb IVxnXi4pbCacnMnmRL7hPO Qvsmcmq068GhCuk4jjXBMh pRNyOLxkQCS3T04yw9Z9QA MwMDAwMDA7 mMX4hB5xvJhlcxqfcFBtsS hbhwHifXylOKqvYCnuA042 VXUtqBtyUyYANeh5R3OdFz k8CIIczUun EZ6qtFHrIFlhWb4lzAmphT grAY3tPKXvyjfgr428FnMt u4nvDKCinCYnBLapNED3B1 2or2T7APDh RYWwIJJ2nLF6pE7dtLgzyh ogbGVmdDsgdmVydGljYWwt DDaoE715GOClhHlrTm6IFg p2I6NeXvn7 QGRqmSffJH5yqOMdBEfqYm 0szRwtzYixXB7uBIXojyrf f309OcKoo7faCYNcpPFsHY wrEOA5P36r r8W6HSBgDNOuQAC9xXQ0hL 1hbGlnbjogbGVmdDsgdmVy vOdcOAkoJLvrC274NUVhyO snPlBheWVy OjwvdGQ+XK17io11O1GlDk kyNnq7KSQjHLH8kZB5bL2g AMQiFUora3S9aGQ1U8Fsbc Tfac2ev7pf YXBz (more content not included)... Normal [facility] Consenton 07-09-2022 Consent [id number]#1. 00CD:127 Normal [facility] Discharge Instructionson Discharge Instructions [id number]#1. 00CD:127 [facility] IntraOperative Documentson 0 07-09-2022 IntraOperative Documents [id number]#1. 00CD:127 [facility] Main OR Intraoperative Recor don 07-08-2022 Main OR Intraoperative Record IntraOp Document Type FT Summary Primary Physician: Josue FERNANDEZ MD Finalized Date/Time: 07/08/22 14:14:38 Pt. Name: TAYLOR CASANOVA JR/Sex: 1965 Male Med Rec #: [id number] Physician: JIM HANLEY, Josue Loya Financial #: [id number] Pt. Type: O Room/Bed: / Admit/Disch: 07/07/22 07:00:47 - 07/07/22 23:59:59 Institution: Case Times FT Entry 1 Patient Times In Room 07/07/22 07:43:00 Out Room 07/07/22 08:01:00 Procedure Times Start 07/07/22 07:47:00 Stop 07/07/22 07:58:00 Anesthesia Times Start 07/07/22 07:43:00 Stop 07/07/22 08:01:00 Time at [place] 07/07/22 07:53:00 Last Modified By: Charity Ordonez RN 07/07/22 08:02:44 General Comments: 07/08/22 Chart opened to review and send charges LRoth CSFA Case Attendance FT Entry 1 Entry 2 Entry 3 Case Attendee Samantha CAA, Vero FERNANDEZ MD, Josue Law CADDYMASTER, Cyndie Cunningham Role Performed Anesthesiologist Surgeon - Primary Scrub - Primary Gluer Machine Setup Operator Time In 07/07/22 07:43:00 07/07/22 07:43:00 07/07/22 07:43:00 Time Out 07/07/22 08:01:00 07/07/22 08:01:00 07/07/22 08:01:00 Procedure COLONOSCOPY(.) COLONOSCOPY(.) COLONOSCOPY(.) Comments DR RODRÍGUEZ SUPERVISING Last Modified By: Charity Ordonez RN, RN, Kimberly Y Barbee RN, Kimberly Y 07/07/22 08:02:45 07/07/22 08:02:45 07/07/22 08:02:45 Entry 4 Case Attendee Charity Ordonez RN Role Performed Assistant Baseball Coach - Primary Time In 07/07/22 07:43:00 Time Out 07/07/22 08:01:00 Procedure COLONOSCOPY(.) Comments Last Modified By: Charity Ordonez RN 07/07/22 08:02:45 Perioperative Protocols FT Pre-Care Text: Implements protective measures prior to operative or invasive procedure, confirms identity before the operative or invasive procedure, verifies operative procedure, surgical site, and laterality Entry 1 Procedure(s) COLONOSCOPY(.) Patient Identity Birthday, ID Band Verified (select at Check, Patient least 2): Participation Consents / H and P Anesthesia Consent, Operative Site N/A Verified HandP, Surgery/Procedure Marking Verified Consent Surgical Site Yes Laterality Verified Yes Verified Procedure Verified Yes Correct Patient Yes Position Verified Availability Equipment, Medication Prep Dry n/a Verified (If Applicable) PreOp Antibiotic No Time Out Samantha HAWKINS, Vero Cunningham, Given Participants JIM HANLEY, Josue Loya, Cyndie Law CST, Charity Ordonez RN Time Out Complete 07/07/22 07:46:00 Outcomes Met? Yes Last Modified By: Charity Ordonez RN 07/07/22 07:47:54 Post-Care Text: The patient is free from signs and symptoms of injury caused by extraneous objects Allergy Information FT Pre-Care Text: Verifies allergies Entry 1 Allergies Reviewed? Yes Allergies Reviewed Self/Patient With Outcomes Met? Yes Last Modified By: Charity Ordonez RN 07/07/22 07:47:56 Post-Care Text: The patient received appropriate medication(s) safely administered during the perioperative period Surgical Procedures FT Entry 1 Procedure Description Procedure COLONOSCOPY Modifiers . Surgeon Description COLONOSCOPY Primary Procedure Yes Primary Surgeon Josue FERNANDEZ MD Start 07/07/22 07:47:00 Stop 07/07/22 07:58:00 Anesthesia Type General Surgical Service General Wound Class 2 - Clean-Contaminated Last Modified By: Charity Ordonez RN 07/07/22 07:58:37 General Case Data FT Pre-Care Text: Classifies surgical wound, implements aseptic technique, initiates traffic control Entry 1 Case Information OR ENDO 2 FT Case Level Level 2 Wound Class 2 - Clean-Contaminated Specialty General ASA Class 3 Preop Diagnosis SCREENING Postop Same As Preop No Postop Diagnosis SCREENING; NORMAL COLON Outcomes Met? Yes Last Modified By: Charity Ordonez RN 07/07/22 07:58:46 Post-Care Text: The patient is free from signs and symptoms of infection Skin Assessment (Pre Procedure) FT Pre-Care Text: Implements protective measures to prevent skin/ tissue injury due to thermal or mechanical sources Evaluates for signs and symptoms of physical injury to skin and tissue Entry 1 Skin Integrity Intact, [place], Warm, and Skin Abnormality No Dry Outcomes Met? Yes Last Modified By: Charity Ordonez RN 07/07/22 07:48:19 Post-Care Text: The patient is free from signs and symptoms of injury caused by extraneous objects Patient Positioning FT Pre-Care Text: Identifies physical alterations that require additional precautions for procedure-specific positioning, verifies presence of prosthetics or corrective devices, positions the patient, evaluates the patient for signs and symptoms of injury as a result of positioning Entry 1 Procedure COLONOSCOPY(.) Body Position Lateral, right side up Feet Uncrossed? Yes Left Arm Position Resting at Side Right Arm Position Resting at Side Left Leg Position Extended Right Leg Position Extended Positioning Device Pillow Under Head Large Press Points Checked Yes B (more content not included)... Normal [facility] Reminderson 07-08-2022 Reminders - From: Faiza Raza LPN To: N - Clinical; Sent: 07/08/2022 11:43:32 EDT Show up: 06/06/2032 07:00:00 EDT Subject: colonoscopy recall Due Date/Time: 07/07/2032 07:00:00 EDT Reminder/Recall Patient is due for screening colonoscopy 07/07/2032. Normal [facility] Colonoscopy Procedure Report on 07-07-2022 Colonoscopy Procedure Report Patient: TAYLOR CASANOVA JR Age: 56 years Sex: Male : 1965 Associated Diagnoses: None Author: Josue FERNANDEZ MD Pre-Procedure Procedure Date 07/07/2022 09:12:00 . Procedure Type: Colonoscopy. Procedure provider Performed by Josue FERNANDEZ MD. Referred by PRECIOUS MARQUEZ MD. Current history and physical Documented on chart. Colorectal neoplasm risk assessment Average risk. Informed Consent After discussing the rationale, risks and benefits, and alternatives to this procedure, the patient provided signed consent for the procedure. Pre-procedure diagnosis: Age 50 years or over. ASA Classification: Class II. . Monitoring: See anesthesia record. . Procedure The procedure was performed in the hospital. See anesthesia record for sedation given during procedure. Rectal exam was performed and was normal. The patient was positioned starting in the left lateral decubitus position. Endoscope type used was an adult-size. The endoscope was lubricated then introduced through the anus. The scope was advanced to the cecum verified by photographing the appendiceal orifice, verified by photographing the ileocecal valve. No difficulties encountered during the procedure. The bowel preparation quality was good and was adequate (see polyps greater than or equal to 6 millimeters). The patient tolerated the procedure well. Findings The bowel was normal throughout the extent examined. Images Procedure images: anal canal ileocecal valve appendiceal orifice . Post-Procedure Complications: none. Estimated blood loss: none. Specimens: none. Devices/ implants: none left in place. Impression and Plan Diagnosis: Encounter for colorectal cancer screening (JRL73-AD Z12.11, Discharge, Medical). Recommendations: Repeat colonoscopy:: In 10 years. Follow-up:: if problems/questions. Diet:: Regular diet. Medication resumption:: Continue current medications. Return to activities:: After 24 hours. Education and Follow-up: Counseled: Family. [facility] Comment on above: Other Comment: Hellen tavares Attachment - attachment storage system not supported [id number] Can be viewed in source systemMissing Attachment - attachment storage system not supported [id number] Can be viewed in source systemMissing Attachment - attachment storage system not supported [id number] Can be viewed in source system Consent for Treatmenton 06-19 Consent for Treatment [id number]#1.0 0CD:127 Normal [facility] Inpatient Patient Summaryon 07-07-2022 Inpatient Patient Summary [address] [address] [facility] Clinical Discharge Instructions PERSON INFORMATION Name: TAYLOR CASANOVA JR [facility]#:[id number] PHYSICIANS Admitting Physician: Josue FERNANDEZ MD Attending Physician: Josue FERNANDEZ MD PCP: EBONY HANLEY, PRECIOUS Valdez Discharge Diagnosis: Encounter for colorectal cancer screening; Encounter for screening for malignant neoplasm of rectum Comment: PATIENT EDUCATION INFORMATION Instructions: Colonoscopy, Adult, Care After Medication Leaflets: Follow up: With: Address: When: Josue FERNANDEZ [address] [place] [address], [address], [facility] [place] [address] [place] [address] Business (1) , only if needed MEDICATION LIST Medications to Continue with No Changes Other Medications colestipol (Colestid 1 g oral tablet) 1 Tablets By Mouth every day. hydrochlorothiazide-lo sartan (hydrochlorothiazide-l osartan 12.5 mg-50 mg Tab) 1 Tablets By Mouth every day. omeprazole (omeprazole 40 mg Cap-DR) 1 Capsules By Mouth every day. Comment: Normal [facility] Main OR PACU I Recordon 06-19 Main OR PACU I Record PACU Phase I Document Type FT Summary Primary Physician: Josue FERNANDEZ MD Finalized Date/Time: 07/07/22 10:36:18 Pt. Name: TAYLOR CASANOVA JR/Sex: 1965 Male Med Rec #: [id number] Physician: Josue FERNANDEZ MD Financial #: [id number] Pt. Type: O Room/Bed: / Admit/Disch: 07/07/22 07:00:47 - Institution: Case Times PACU I FT Pre-Care Text: Identifies barriers to communication and implements measures to provide psychological support Develops individualized plan of care, and ensures continuity of care Maintains patient's dignity and privacy, and maintains patient confidentiality Identifies and reports philosophical, cultural, and spiritual beliefs and values Identifies individual values and wishes concerning care Implements aseptic technique, and administers prescribed antibiotic therapy and immunizing agents as ordered Evaluates postoperative tissue perfusion Implements thermoregulation measures, and monitors body temperature Evaluates postoperative respiratory status Evaluates postoperative cardiac status Evaluates postoperative neurological status Assesses pain control, collaborated in initiating patient-controlled analgesia and implements alternative methods of pain control Verifies allergies, administers prescribed medications and solutions, evaluates response to medications Entry 1 In PACU I 07/07/22 08:02:00 Discharge from PACU 07/07/22 08:32:00 I Outcomes Met? Yes Last Modified By: Alex White RN 07/07/22 10:36:00 Post-Care Text: The patient demonstrates knowledge of the expected response to the operative or invasive procedure The patient's care is consistent with the individualized perioperative plan of care The patient's right to privacy is maintained The patient's value system, lifestyle, ethnicity, and culture are considered, respected, and incorporated into the perioperative plan of care The patient participates in decisions affecting his or her perioperative plan of care The patient is free from signs and symptoms of infection The patient has wound/tissue perfusion consistent with or improved from baseline levels established preoperatively The patient is at or returning to normothermia at the conclusion of the immediate postoperative period The patient's respiratory function is consistent with or improved from baseline levels established preoperatively The patient's cardiovascular status is consistent with or improved from baseline levels established preoperatively The patient's cardiovascular status is consistent with or improved from baseline levels established preoperatively The patient demonstrates and/or reports adequate pain control throughout the perioperative period The patient received appropriate medication(s), safely administered during the perioperative period Acuity Level PACU I FT Entry 1 Start Time 07/07/22 08:02:00 Stop Time 07/07/22 08:32:00 Acuity Level Acuity Level I Last Modified By: Alex White RN 07/07/22 10:36:16 Finalized By: Alex White RN Document Signatures Signed By: Alex White RN 07/07/22 10:36 Normal [facility] Main OR Preoperative Recordo n 07-07-2022 Main OR Preoperative Record Holding Area Document Type FT Summary Primary Physician: Josue FERNANDEZ MD Finalized Date/Time: 07/07/22 07:16:10 Pt. Name: EDILBERTO WRIGHT TAYLORLINDSAY Busch/Sex: 1965 Male Med Rec #: [id number] Physician: Josue FERNANDEZ MD Financial #: [id number] Pt. Type: O Room/Bed: / Admit/Disch: 07/07/22 07:00:47 - Institution: Case Times Holding FT Pre-Care Text: Verifies consent for planned procedure, identifies individual values and wishes concerning care, includes family members in perioperative teaching Secures patient's records' belongings, and valuables, maintains patient's dignity and privacy, and maintains patient confidentiality Entry 1 In Holding 07/07/22 07:09:00 Outcomes Met? Yes Last Modified By: Gia Perez RN 07/07/22 07:14:54 Post-Care Text: The patient participates in decisions affecting his or her perioperative plan of care The patient's right to privacy is maintained Surgery Checklist FT Entry 1 Patient Birthday, ID Band Procedure History and Physical, Identification: Check, Patient Verification: Surgical Consent, With Participation Patient NPO after Midnight: Yes Date/Time: 07/07/22 00:00:00 Personal Items: Jewelry Personal Items ring x1, clothes, shoes Comment: Limitations: n/a Complaints of Pain: No Pain Comment: denies Operative Site n/a Marking: Marked By: n/a Availability Equipment Verified: Does Patient Smoke No Patient states Yes Comment - Adult postop adult Supervision supervision available Case Cancelled in No Holding Area see comments below for reason Last Modified By: Gia Perez RN 07/07/22 07:16:07 General Comments: Patient finished colon prep before midnight, states stool is liquid clear/green /MDRN Finalized By: Gia Perez RN Document Signatures Signed By: Gia Perez RN 07/07/22 07:16 Normal [facility] Monitor Recordon 07-07-2022 Monitor Record [id number]. 00CD:127 Normal [facility] Monitor Record [id number]. 00CD:127 [facility] Outpatient Surgery Discharge Instructionon 07-07-2022 Outpatient Surgery Discharge Instruction [place] [id number] Patient Discharge Instructions PERSON INFORMATION Name: TAYLOR CASANOVA JR Date of : 1965 Current Date: 07/07/2022 08:28:05 PHYSICIANS Admitting Physician: Josue FERNANDEZ MD Discharge Diagnosis: Encounter for colorectal cancer screening; Encounter for screening for malignant neoplasm of rectum TAYLOR CASANOVA JR has been given the following list of follow-up instructions, prescriptions, and patient education materials: PATIENT FOLLOW-UP INFORMATION Diet: Regular Discharge Activity: Resume normal activities in 24 hours, Arrange for a responsible adult supervision for 24 hours Discharge Restrictions: No driving for 24 hrs, Do not operate machinery or tools, Do not make important decisions for 24 hours, Do not drink alcoholic beverages for 24 hours Call Your Doctor For: Persistent or heavy bleeding, Temperature above 101.5 degrees, Severe pain at the operative site, Persistent vomiting IF UNABLE TO CONTACT YOUR PHYSICIAN AND YOU FEEL IT IS AN EMERGENCY, GO TO THE NEAREST EMERGENCY ROOM OR CALL 911 I, EDILBERTO WRIGHT, TAYLOR Marroquin, have received the attached patient education materials/instructions and have verbalized understanding: May we do a follow up call? Yes No I was present when discharge instructions were given Patient Signature Date Clinican/Nurse Signature ___ Date Follow up: With: Address: When: [address] Ru[address], [address], [place] [id number] Business (1) , only if needed Pharmacy Information: [facility] You may receive a survey from [employer] asking you to rate your care experience. Your feedback is important and will help us understand what we do well and how we can improve the quality of care we provide to you, your loved ones and our community. It?s an honor to serve you. Thank you for choosing [facility] HERE ARE THE MEDICATION CHANGES THAT OCCURRED DURING YOUR HOSPITAL STAY Medications to Continue with No Changes Other Medications colestipol (Colestid 1 g oral tablet) 1 Tablets By Mouth every day. hydrochlorothiazide-lo sartan (hydrochlorothiazide-l osartan 12.5 mg-50 mg Tab) 1 Tablets By Mouth every day. omeprazole (omeprazole 40 mg Cap-DR) 1 Capsules By Mouth every day. PATIENT EDUCATION INFORMATION Instructions: Colonoscopy, Adult, Care After This sheet gives you information about how to care for yourself after your procedure. Your health care provider may also give you more specific instructions. If you have problems or questions, contact your health care provider. What can I expect after the procedure? After the procedure, it is common to have: ? A small amount of blood in your stool for 24 hours after the procedure. ? Some gas. ? Mild abdominal cramping or bloating. Follow these instructions at home: General instructions ? For the first 24 hours after the procedure: ? Do not drive or use machinery. ? Do not sign important documents. ? Do not drink alcohol. ? Do your regular daily activities at a slower pace than normal. ? Eat soft, wcjt-tn-fdxtpi foods. ? Take jzmx-osx-uolfmau or prescription medicines only as told by your health care provider. Relieving cramping and bloating ? Try walking around when you have cramps or feel bloated. ? Apply heat to your abdomen as told by your health care provider. Use a heat source that your health care provider recommends, such as a moist heat pack or a heating pad. ? Place a towel between your skin and the heat source. ? Leave the heat on for 20?30 minutes. ? Remove the heat if your skin turns bright red. This is especially important if you are unable to feel pain, heat, or cold. You may have a greater risk of getting burned. Eating and drinking ? Drink enough fluid to keep your urine pale yellow. ? Resume your normal diet as instructed by your health care provider. Avoid heavy or fried foods that are hard to digest. ? Avoid drinking alcohol for as long as instructed by your health care provider. Contact a health care provider if: ? You have blood in your stool 2?3 days after the procedure. Get help right away if: ? You have more than a small spotting of blood in your stool. ? You pass large blood clots in your stool. ? Your abdomen is swollen. ? You have nausea or vomiting. ? You have a fever. ? You have increasing abdominal pain that is not relieved with medicine. Summary ? After the procedure, it is common to have a small amount of blood (more content not included)... Normal [place] [facility] Patient Education - Texton 0 07-07-2022 Patient Education - Text Radiology Colonoscopy, Adult, Care After This sheet gives you information about how to care for yourself after your procedure. Your health care provider may also give you more specific instructions. If you have problems or questions, contact your health care provider. What can I expect after the procedure? After the procedure, it is common to have: ? A small amount of blood in your stool for 24 hours after the procedure. ? Some gas. ? Mild abdominal cramping or bloating. Follow these instructions at home: General instructions ? For the first 24 hours after the procedure: ? Do not drive or use machinery. ? Do not sign important documents. ? Do not drink alcohol. ? Do your regular daily activities at a slower pace than normal. ? Eat soft, zrxv-zi-mmtmoa foods. ? Take kfko-rbg-okybizl or prescription medicines only as told by your health care provider. Relieving cramping and bloating ? Try walking around when you have cramps or feel bloated. ? Apply heat to your abdomen as told by your health care provider. Use a heat source that your health care provider recommends, such as a moist heat pack or a heating pad. ? Place a towel between your skin and the heat source. ? Leave the heat on for 20?30 minutes. ? Remove the heat if your skin turns bright red. This is especially important if you are unable to feel pain, heat, or cold. You may have a greater risk of getting burned. Eating and drinking ? Drink enough fluid to keep your urine pale yellow. ? Resume your normal diet as instructed by your health care provider. Avoid heavy or fried foods that are hard to digest. ? Avoid drinking alcohol for as long as instructed by your health care provider. Contact a health care provider if: ? You have blood in your stool 2?3 days after the procedure. Get help right away if: ? You have more than a small spotting of blood in your stool. ? You pass large blood clots in your stool. ? Your abdomen is swollen. ? You have nausea or vomiting. ? You have a fever. ? You have increasing abdominal pain that is not relieved with medicine. Summary ? After the procedure, it is common to have a small amount of blood in your stool. You may also have mild abdominal cramping and bloating. ? For the first 24 hours after the procedure, do not drive or use machinery, sign important documents, or drink alcohol. ? Contact your health care provider if you have a lot of blood in your stool, nausea or vomiting, a fever, or increased abdominal pain. This information is not intended to replace advice given to you by your health care provider. Make sure you discuss any questions you have with your health care provider. Document Released: 05/19/2005 Document Revised: 07/28/2018 Document Reviewed: 12/16/2016 [employer] Patient Education ? 2019 [employer]. Normal [facility] XR pre/post mri xrayon 06-25 XR pre/post mri xray [facility] [place] [address] MRI Report Signed Patient: Taylor Casanova MR#: [id number] 46 : 1965 Acct:[id number] Age/Sex: 56 / M ADM Date: 06/25/22 Loc: [facility] Room: Type: [facility] Attending Dr: Piter Chairez DO Copies to: Aryan Chairez DO Ordering Provider: Aryan Chairez DO Date of Service: 06/25/22 MR/MR cervical spine wo con: R29.898 ([id number]) XR/XR pre/post mri xray: post MRI cervical MRI cervical spine without contrast TECHNIQUE: Multiplanar T1 and T2-weighted imaging of the cervical spine obtained. HISTORY:Neck pain. RIGHT arm weakness and numbness. COMPARISON:None Cervical lordosis is adequate. No listhesis identified in supine position. The craniocervical junction is unremarkable. Mild C2-3 spondylosis present. Mild diffuse disc bulge identified. Central canal and neural foramen are patent. C3-4 spondylosis with a diffuse disc bulge results in mild crowding of the spinal cord. No cord edema or hemorrhage identified. Mild RIGHT neural foraminal narrowing. Patent LEFT neural foramen. C4-5 spondylosis with a mild diffuse disc bulge present. Mild crowding of the central cord identified. No cord edema or hemorrhage present. The neural foramen patent. C5-6 moderate spondylosis. Disc and osteophyte complex with moderate cardiac spinal cord seen. No cord edema or hemorrhage identified. Moderate bilateral neural foraminal narrowing present. C6-7 advanced spondylosis identified. Diffuse disc bulge present. Central canal patent. Neural foramina are patent. No cervical spine fracture or bone marrow edema is identified. The facets are in adequate alignment. . MR/MR cervical spine wo con IMPRESSION: Multilevel discovertebral degenerative changes with mild to moderate contouring the spinal cord. No foraminal narrowing as above. 3 views of the cervical spine obtained for pre-MRI assessment. C5-6 advanced bilateral bony neural foraminal narrowing identified. C5-6 posterior disc space narrowing present. No acute bony findings. Soft tissues unremarkable. IMPRESSION: Advanced C5-6 spondylosis and bilateral bony neural foraminal narrowing. Impression dictated by: Pascual Che M.D.06/25/2022 4:03 PM Dictation Location: [place] [address] Transcribed By: [facility] 06/25/22 1603 Dictated By: Pascual Che DO 06/25/22 1558 Signed By: 06/25/22 1603 [facility] CBC AUTO DIFFon 06-14-2022 BASO # 0.1 103/ul Normal 0.0-0.1 [facility] Comment on above: Performed By: #### C BC #### [facility] [address] [place] [address] Dr. Aris Baltazar Basophils/100 WBC (Bld) 1.2 % Normal 0.2-2.0 [facility] Comment on above: Performed By: #### C BC #### [facility] [address] [place] [address] Dr. Aris Baltazar EO # 0.3 103/ul Normal 0.0-0.7 [facility] Comment on above: Performed By: #### C BC #### [facility] [address] [place] [address] Dr. Aris Baltazar Eosinophils/100 WBC (Bld) 4.5 % Normal 0.9-7.0 [facility] Comment on above: Performed By: #### C BC #### [facility] [address] [place] [address] Dr. Aris Baltazar Erythrocyte distribution width (RBC) [Ratio] 13.1 % Normal 11.0-15.0 [facility] Comment on above: Performed By: #### C BC #### [facility] [address] [place] [address] Dr. Aris Baltazar Hematocrit (Bld) [Volume fraction] 48.3 % Normal 42.0-54.0 [facility] Comment on above: Performed By: #### C BC #### [facility] [address] [place] [address] Dr. Aris Baltazar Hemoglobin (Bld) [Mass/Vol] 16.2 g/dL Normal 14.0-18.0 [facility] Comment on above: Performed By: #### C BC #### [facility] [address] [place] [address] Dr. Aris Baltazar IG # 0.03 10e3/ul Normal 0.00-0.03 [facility] Comment on above: Performed By: #### C BC #### [facility] [address] [place] [address] Dr. Aris Baltazar IG % 0.4 % Normal 0.0-0.5 [facility] Comment on above: Performed By: #### C BC #### [facility] [address] [place] [address] Dr. Aris Baltazar LYMPH # 2.4 103/ul Normal 1.2-3.8 [facility] Comment on above: Performed By: #### C BC #### [facility] [address] [place] [address] Dr. Aris Baltazar Lymphocytes/100 WBC (Bld) 30.8 % Normal 20.5-60.0 [facility] Comment on above: Performed By: #### C BC #### [facility] [address] [place] [address] Dr. rAis Baltazar MANUAL DIFF REQ NO Normal [facility] Comment on above: Performed By: #### C BC #### [facility] [address] [place] [address] Dr. Aris Baltazar MCH (RBC) [Entitic mass] 29.3 pg Normal 25.9-34.0 [facility] Comment on above: Performed By: #### C BC #### [facility] [address] [place] [address] Dr. Aris Baltazar MCHC (RBC) [Mass/Vol] 33.5 g/dL Normal 29.9-35.2 [facility] Comment on above: Performed By: #### C BC #### [facility] [address] [place] [address] Dr. Aris Baltazar MCV (RBC) [Entitic vol] 87.5 fL Normal 80.0-94.0 [facility] Comment on above: Performed By: #### C BC #### [facility] [address] [place] [address] Dr. Aris Baltazar MONO # 0.5 103/ul Normal 0.3-0.8 [facility] Comment on above: Performed By: #### C BC #### [facility] [address] [place] [address] Dr. Aris Baltazar Monocytes/100 WBC (Bld) 6.7 % Normal 1.7-12.0 [facility] Comment on above: Performed By: #### C BC #### [facility] [address] [place] [address] Dr. Aris Baltazar NEUT # 4.3 103/ul Normal 1.4-6.5 [facility] Comment on above: Performed By: #### C BC #### [facility] [address] [place] [address] Dr. Aris Baltazar Neutrophils/100 WBC (Bld) 56.4 % Normal 43.0-75.0 [facility] Comment on above: Performed By: #### C BC #### [facility] [address] [place] [address] Dr. Aris Baltazar Platelet mean volume (Bld) [Entitic vol] 10.6 fL Normal 9.5-13.5 [facility] Comment on above: Performed By: #### C BC #### [facility] [address] [place] [address] Dr. Aris Baltazar PLT 218 103/ul Normal 150-450 [facility] Comment on above: Performed By: #### C BC #### [facility] [address] [place] [address] Dr. Aris Baltazar RBC 5.52 106/ul Normal 4.70-6.10 [facility] Comment on above: Performed By: #### C BC #### [facility] [address] [place] [address] Dr. Aris Baltazar WBC 7.6 103/ul Normal 4.0-11.0 [facility] Comment on above: Performed By: #### C BC #### [facility] [address] [place] [address] Dr. Aris Baltazar LIPID PROFILEon 06-14-2022 CHOL-HDL RATIO NORM SEE BELOW Normal [facility] Comment on above: Result Comment: 3.3 - 4.4 LOW RISK 4.4 - 7.1 AVERAGE RISK 7.1 - 11.0 MODERATE RISK >11.0 HIGH RISK Performed By: #### C MP, LIPID #### [facility] [address] [place] [address] Dr. Aris Baltazar Cholesterol [Mass/Vol] 255 mg/dL Critically high <=200 [facility] Comment on above: Performed By: #### C MP, LIPID #### [facility] [address] [place] [address] Dr. Aris Baltazar Cholesterol in HDL [Mass/Vol] 62 mg/dL Critically high 40-60 [facility] Comment on above: Performed By: #### C MP, LIPID #### [facility] [address] [place] [address] Dr. Aris Baltazar Cholesterol in LDL [Mass/Vol] 178.2 mg/dL Normal [facility] Comment on above: Performed By: #### C MP, LIPID #### [facility] [address] [place] [address] Dr. Aris Baltazar Cholesterol.total/Ch olesterol in HDL [Mass ratio] 4.1 {ratio} Normal [facility] Comment on above: Performed By: #### C MP, LIPID #### [facility] [address] [place] [address] [address] Aris Baltazar HDL NORMAL > or = 60 mg/dl - LO W CARDIOVASCULAR RISK <40 mg/dl - HIGH CARDIOVASCULAR RISK Normal [facility] Comment on above: Performed By: #### C MP, LIPID #### [facility] [address] [place] [address] [address] Aris Baltazar LDL CALC NORMAL SEE BELOW Normal [facility] Comment on above: Result Comment: <100 mg/dl OPTIMAL 100 - 129 mg/dl NEAR OR ABOVE OPTIMAL 130 - 159 mg/dl BORDERLINE HIGH 160 - 189 mg/dl HIGH >190 mg/dl VERY HIGH Performed By: #### C MP, LIPID #### [facility] [address] [place] [address] [address] Aris Baltazar Triglyceride [Mass/Vol] 74 mg/dL Normal <=150 [facility] Comment on above: Performed By: #### C MP, LIPID #### [facility] [address] [place] [address] [address] Aris Baltazar VLDL CALC 14.8 mg/dL Normal [facility] Comment on above: Performed By: #### C MP, LIPID #### [facility] [address] [place] [address] [address] Aris Baltazar PROF 14(COMP METB)on 022 Albumin [Mass/Vol] 4.3 g/dL Normal 3.4-5.0 [facility] Comment on above: Performed By: #### C MP, LIPID #### [facility] [address] [place] [address] [address] Aris Baltazar Albumin/Globulin [Mass ratio] 1.4 {ratio} Normal [facility] Comment on above: Performed By: #### C MP, LIPID #### [facility] [address] [place] [address] [address] Aris Baltazar ALP [Catalytic activity/Vol] 66 U/L Normal 46-116 [facility] Comment on above: Performed By: #### C MP, LIPID #### [facility] [address] [place] [address] [address] Aris Baltazar ALT [Catalytic activity/Vol] 39 U/L Normal 16-63 [facility] Comment on above: Performed By: #### C MP, LIPID #### [facility] [address] [place] [address] [address] Aris Baltazar Anion gap [Moles/Vol] 11.2 mmol/L Normal [facility] Comment on above: Performed By: #### C MP, LIPID #### [facility] [address] [place] [address] [address] Aris Baltazar AST [Catalytic activity/Vol] 18 U/L Normal 15-37 [facility] Comment on above: Performed By: #### C MP, LIPID #### [facility] [address] [place] [address] [address] Aris Baltazar Bilirubin [Mass/Vol] 0.7 mg/dL Normal 0.2-1.0 [facility] Comment on above: Performed By: #### C MP, LIPID #### [facility] [address] [place] [address] [address] Aris Baltazar Calcium [Mass/Vol] 8.7 mg/dL Normal 8.5-10.1 [facility] Comment on above: Performed By: #### C MP, LIPID #### [facility] [address] [place] [address] [address] Aris Baltazar Chloride [Moles/Vol] 103 mmol/L Normal 98-107 [facility] Comment on above: Performed By: #### C MP, LIPID #### [facility] [address] [place] [address] [address] Aris Baltazar CO2 [Moles/Vol] 27.8 mmol/L Normal 21.0-32.0 [facility] Comment on above: Performed By: #### C MP, LIPID #### [facility] [address] [place] [address] [address] Aris Baltazar Creatinine [Mass/Vol] 1.29 mg/dL Normal 0.70-1.30 [facility] Comment on above: Performed By: #### C MP, LIPID #### [facility] [address] [place] [address] [address] Aris Baltazar EGFR-AF BAHAMIAN >60 Normal >=60 [facility] Comment on above: Performed By: #### C MP, LIPID #### [facility] [address] [place] [address] [address] Aris Baltazar EGFR-NON AF BAHAMIAN 58 mL/min/1.73m2 Critically low >=60 [facility] Comment on above: Performed By: #### C MP, LIPID #### [facility] [address] [place] [address] [address] Aris Baltazar Globulin (S) [Mass/Vol] 3.0 g/dL Normal [facility] Comment on above: Performed By: #### C MP, LIPID #### [facility] [address] [place] [address] [address] Aris Baltazar Glucose [Mass/Vol] 111 mg/dL Critically high 74-106 [facility] Comment on above: Performed By: #### C MP, LIPID #### [facility] [address] [place] [address] [address] Aris Baltazar Potassium [Moles/Vol] 4.0 mmol/L Normal 3.5-5.1 [facility] Comment on above: Performed By: #### C MP, LIPID #### [facility] [address] [place] [address] [address] Aris Baltazar Protein [Mass/Vol] 7.3 g/dL Normal 6.4-8.2 [facility] Comment on above: Performed By: #### C MP, LIPID #### [facility] [address] [place] [address] [address] Aris Baltazar Sodium [Moles/Vol] 138 mmol/L Normal 136-145 [facility] Comment on above: Performed By: #### C MP, LIPID #### [facility] [address] [place] [address] [address] Aris Baltazar Urea nitrogen [Mass/Vol] 18.0 mg/dL Normal 7.0-18.0 [facility] Comment on above: Performed By: #### C MP, LIPID #### [facility] [address] [place] [address] [address] Aris Baltazar Urea nitrogen/Creatinine [Mass ratio] 14.0 mg/mg Normal [facility] Comment on above: Performed By: #### C MP, LIPID #### [facility] [address] [place], [place] [address] Dr. Aris Baltazar Ambulatory Visit Summaryon 0 06-03-2022 Ambulatory Visit Summary TAYLOR CASANOVA JR :1965 Visit Date:06/03/2022 Ambulatory Visit Instructions Your Diagnosis Screening for malignant neoplasm of colon Your Care Team Attending Physician - JIM HANLEY, Josue Loya Primary Care Physician - EBONY HANLEY, PRECIOUS Valdez Referring Physician - EBONY HANLEY, PRECIOUS [place] This Is Your Medications List Contact prescribing physician if questions or concerns colestipol (Colestid 1 g oral tablet) hydrochlorothiazide-lo sartan (hydrochlorothiazide-l osartan 12.5 mg-50 mg Tab) omeprazole (omeprazole 40 mg Cap-DR) Procedures Performed Cholecystectomy (05/11/2019), Appendectomy, CLUB FOOT REPAIR, CLUB FOOT REPAIR, History of knee surgery. Discharge Vitals Heart Rate (Peripheral) 90 Respiratory Rate 16 Blood Pressure 153/89 Height 167.6 cm Height 167.6 cm Weight 95.1 kg Weight 95.1 kg BMI 33.86 What to do next Scheduled Follow-Up Appointments Thursday 8:00 AM EDT Where: [facility] Medications What How Much When Instructions Unchanged colestipol (Colestid 1 g oral tablet) 1 Tablets By Mouth Every day Contact prescribing physician if questions or concerns Unchanged hydrochlorothiazide-lo sartan (hydrochlorothiazide-l osartan 12.5 mg-50 mg Tab) 1 Tablets By Mouth Every day Contact prescribing physician if questions or concerns Unchanged omeprazole (omeprazole 40 mg Cap-DR) 1 Capsules By Mouth Every day Contact prescribing physician if questions or concerns Allergies lisinopril (Cough) Problems Ongoing - Any problem that you are currently receiving treatment for. BMI 33.0-33.9,adult Chronic diarrhea GERD (gastroesophageal reflux disease) HTN (hypertension) Screening for malignant neoplasm of colon Historical - Any problem that you are no longer receiving treatment for. Smoker Tear of anterior cruciate ligament [facility] Consent for Procedure/Surger yon 06-03-2022 Consent for Procedure/Surgery [id number] CD:127 [facility] HIPAA Privacy Documentson HIPAA Privacy Documents [id number] 0CD:127 [facility] Physician Referralon 022 Physician Referral [id number] 0CD:127 [facility] Vital Signs Date Time Vital Sign Value Performing Clinician Facility 12-29-2024 09:14-0400 Body height 162.56 cm [facility] 12-29-2024 09:14-0400 Body mass index (BMI) [Ratio] 36.2 kg/m2 [facility] 12-29-2024 09:14-0400 Body weight 95.7 kg [facility] 12-29-2024 09:14-0400 Diastolic blood pressure 90 mm[Hg] [facility] 12-29-2024 09:14-0400 Heart rate 67 /min [facility] 12-29-2024 09:14-0400 Systolic blood pressure 127 mm[Hg] [facility] 12-04-2023 11:47-0500 Body height 165.1 cm [facility] 12-04-2023 11:47-0500 Body mass index (BMI) [Ratio] 35.2 kg/m2 [facility] 12-04-2023 11:47-0500 Body temperature 98.4 [degF] [facility] 12-04-2023 11:47-0500 Body weight 95.87 kg [facility] 12-04-2023 11:47-0500 Diastolic blood pressure 91 mm[Hg] [facility] 12-04-2023 11:47-0500 Heart rate 86 /min [facility] 12-04-2023 11:47-0500 Systolic blood pressure 157 mm[Hg] [facility] 10-16-2023 08:00-0500 Body height 165.1 cm Esha Valladares Other [facility] 04-20-2023 08:15-0400 Body height 165.1 cm Esha Valladares Other [facility] [employer] Other 04-20-2023 08:15-0400 Body mass index (BMI) [Ratio] 33.78 kg/m2 Esha Valladares Other [facility] [employer] Other 04-20-2023 08:15-0400 Body weight 92.08 kg Esha Valladares Other [facility] [employer] Other 04-17-2023 12:01-0400 Body height 165.1 cm MD Precious Marquez Work Phone: [facility] 04-17-2023 12:01-0400 Body temperature 98.1 [degF] MD Precious Marquez Work Phone: [facility] 04-17-2023 12:01-0400 Body weight 93.7 kg MD Precious Marquez Work Phone: [facility] 04-17-2023 12:01-0400 Diastolic blood pressure 97 mm[Hg] MD Precious Marquez Work Phone: [facility] 04-17-2023 12:01-0400 Heart rate 77 /min MD Precious Marquez Work Phone: [facility] 04-17-2023 12:01-0400 Respiratory rate 14 /min MD Precious Marquez Work Phone: [facility] 04-17-2023 12:01-0400 SaO2% (BldA) [Mass fraction] 97 % MD Precious Marquez Work Phone: [facility] 04-17-2023 12:01-0400 Systolic blood pressure 139 mm[Hg] MD Precious Marquez Work Phone: [facility] 07-07-2022 08:25-0400 Blood Pressure Location Josue NILL [facility] 07-07-2022 08:25-0400 Diastolic blood pressure 83 mm[Hg] Josue NILL [facility] 07-07-2022 08:25-0400 Heart rate 64 /min Josue NILL [facility] 07-07-2022 08:25-0400 Respiratory rate 18 /min Josue NILL [facility] 07-07-2022 08:25-0400 SaO2% (BldA) [Mass fraction] 96 % Josue NILL [facility] 07-07-2022 08:25-0400 Systolic blood pressure 118 mm[Hg] Josue NILL [facility] 07-07-2022 08:20-0400 Blood Pressure Location Josue NILL [facility] 07-07-2022 08:20-0400 Diastolic blood pressure 82 mm[Hg] Josue NILL [facility] 07-07-2022 08:20-0400 Heart rate 64 /min Josue NILL [facility] 07-07-2022 08:20-0400 Respiratory rate 17 /min Josue NILL [facility] 07-07-2022 08:20-0400 SaO2% (BldA) [Mass fraction] 97 % Josue NILL [facility] 07-07-2022 08:20-0400 Systolic blood pressure 117 mm[Hg] Josue NILL [facility] 07-07-2022 08:15-0400 Blood Pressure Location Josue HOLDENL [facility] 07-07-2022 08:15-0400 Diastolic blood pressure 85 mm[Hg] Josue NILL [facility] 07-07-2022 08:15-0400 Heart rate 68 /min Josue NILL [facility] 07-07-2022 08:15-0400 Respiratory rate 15 /min Josue NILL [facility] 07-07-2022 08:15-0400 SaO2% (BldA) [Mass fraction] 96 % Josue NILL [facility] 07-07-2022 08:15-0400 Systolic blood pressure 118 mm[Hg] Josue HOLDENL [facility] 07-07-2022 08:02-0400 Body temperature 97.16 [degF] Josue HOLDENL [facility] 07-07-2022 07:55-0400 Respiratory rate 14 /min Josue HOLDENL [facility] 07-07-2022 07:50-0400 Respiratory rate 18 /min Josue HOLDENL [facility] 07-07-2022 07:17-0400 Body temperature 97.16 [degF] Josue HOLDENL [facility] Encounters Encounter Date Encounter Type Care Provider Facility Start: 12-29-2024 Patient encounter status [facility] Start: 12-29-2024 End: 12-29-2024 ambulatory [facility] Work Phone: Start: 12-29-2024 End: 12-29-2024 Encounter for general adult medical examination without abnormal findings [facility] Start: 12-29-2024 End: 12-29-2024 Patient encounter procedure [facility] Work Phone: Start: 11-02-2024 Non-patient / Non-visit [facility] Work Phone: Start: 10-14-2024 End: 10-14-2024 Patient encounter procedure [facility] Work Phone: Start: 01-20-2024 End: 01-21-2024 ambulatory [facility] Facility:[facility] Start: 12-04-2023 End: 12-04-2023 ambulatory [facility] Work Phone: Start: 12-04-2023 End: 12-04-2023 Patient encounter procedure [facility] Work Phone: Start: 11-04-2023 End: 11-04-2023 ambulatory Lottie Rocha Other [employer] Other Start: 11-04-2023 Telephone encounter Lottie Rocha [facility] Start: 10-16-2023 End: 10-16-2023 ambulatory Esha Lesey Other [employer] Other Start: 10-16-2023 Office outpatient vi sit 15 minutes Esha Blaine [facility] Start: 10-16-2023 End: 10-16-2023 Patient encounter procedure [facility] Work Phone: Start: 10-06-2023 End: 10-06-2023 ambulatory Esha Calvey Other [employer] Other Start: 10-06-2023 Telephone encounter Eshamary jo Valladares [facility] Start: 09-08-2023 End: 09-08-2023 ambulatory Esha Calvey Other [employer] Other Start: 09-08-2023 Office outpatient vi sit 15 minutes Esha Calvey [facility] Start: 07-28-2023 End: 07-28-2023 ambulatory Esha Calvey Other [employer] Other Start: 07-28-2023 Office outpatient vi sit 15 minutes Esha Calvey [facility] Start: 06-16-2023 End: 06-16-2023 ambulatory Esha Calvey Other [employer] Other Start: 06-16-2023 Postop follow up vis it related to original px Esha Calvey [facility] Start: 05-19-2023 End: 05-19-2023 ambulatory Esha Calvey Other [employer] Other Start: 05-19-2023 Postop follow up vis it related to original px Esha Calvey [facility] Start: 04-29-2023 End: 04-29-2023 ambulatory Esha Calvey Other [employer] Other Start: 04-29-2023 Postop follow up vis it related to original px Esha Calvey [facility] Start: 04-20-2023 ([facility]) [place] [facility] [employer] Esha Calvey [facility] Start: 04-20-2023 End: 04-20-2023 ambulatory Esha Calvey Other [employer] Other Start: 04-17-2023 End: 04-17-2023 Emergency department patient visit Shyla Jimenez Facility:[facility] Start: 04-17-2023 End: 04-17-2023 Emergency department patient visit MD Precious Marquez Work Phone: [facility] Work Phone: Start: 09-25-2022 End: [address] PRECIOUS MARQUEZ Facility: Start: 07-07-2022 End: 07-08-2022 ambulatory Josue FERNANDEZ Facility:[facility] Start: 07-07-2022 End: 07-07-2022 Patient encounter procedure Josue FERNANDEZ [facility] Start: 06-25-2022 End: 06-25-2022 ambulatory Precious Marquez Facility:[facility] Start: 06-25-2022 End: 06-25-2022 Patient encounter procedure DO Piter Chairez Work Phone: [facility] [address] Start: 06-16-2022 Encounter for genera l adult medical examination without abnormal findings DR PRECIOUS MARQUEZ [facility] Start: 06-14-2022 End: 06-15-[address] PRECIOUS MARQUEZ Facility:[facility] Start: 06-14-2022 End: 06-15-2022 Encounter for general adult medical examination without abnormal findings DR PRECIOUS MARQUEZ Facility:[facility] Start: 06-03-2022 End: 06-04-2022 ambulatory Precious MARQUEZ Facility: [facility] Start: 05-08-2022 ambulatory Precious MARQUEZ Facility : [facility] Start: 04-29-2022 ambulatory Precious MARQUEZ Facili ty:[facility] Procedures Date Procedure Procedure Detail Performing Clinician Start: 04-17-2023 Plain X-ray of left hand MD Precious Marquez Work Phone: Start: 07-07-2022 Colonoscopy Josue MOYA Start: 06-25-2022 XR pre/post mri xray DO Piter Chairez Work Phone: Start: 06-25-2022 MRI of cervical spin e without contrast DO Piter Chairez Work Phone: Start: 06-14-[address] PRECIOUS KEATING Comment on above: Performed By: #### [facility] #### [facility] [address] [place] [address] Dr. Aris Baltazar Start: 05-11-2019 Cholecystectomy Josue FERNANDEZ Appendectomy Josue FERNANDEZ CLUB FOOT REPAIR Josue Mason History of operative procedure on knee Josue FERNANDEZ Plan of Treatment Date Care Activity Detail Author Comprehensive metabo lic 2000 panel - Serum or Plasma [facility] Patient Education Finger Fractur e ED Laceration Repair With Stitches ED [facility] Work Phone: Patient referral [facility] Work Phone: [facility] Immunizations Immunization Date Immunization Notes Care Provider Fa anjana 04-17-2023 tetanus toxoid, redu lori diphtheria toxoid, and acellular pertussis vaccine, adsorbed MD Precious Maruqez Work Phone: [facility] 06-03-2015 tetanus toxoid, redu lori diphtheria toxoid, and acellular pertussis vaccine, adsorbed Josue FERNANDEZ [facility] Payers Date Payer Category Payer Worker's Compensation [id number] 2022 Self-pay 1965 Unknown [id number] 1966 Unknown [id number] 1966 Unknown [id number] 1966 Unknown [id number] 1966 Unknown [id number] 1966 Unknown [id number] 1959 Private Health Insurance [id number] Unknown [employer] [id number] Unknown [id number] Unknown [id number] Social History Date Type Detail Facility Tobacco smoking stat [facility] Unknown if ever smoked [facility] Work Phone: Start: 1965 Sex Assigned At Male [facility] Start: 06-03-2022 End: 04-17-2023 Tobacco smoking status Never smoked tobacco (finding) [facility] [place] Tobacco smoking status Never [facility] [place] Sex Assigned At Male [facility] Start: 12-29-2024 Sex Male (finding) [facility] Functional Status Date Assessment Result Facility 07-07-2022 Functional Status N/A [facility] Clinical Notes 06-03-2022 to 10-14-2024 Note Date & Type Note Facility 10-14-2024 Evaluation note Diagnosis Onset Date Resolution Abrasion of left index finger, initial encounter acute Decemb er 2023 7:56am Closed crushing injury of multiple fingers acute October 14, 2024 7:56am Laceration of left middle finger w/o foreign body w/o damage to nail acute October 14, 2024 7:56am Essential (primary) hypertension acute December 29, 2024 8:58am Otitis externa acute December 8:58am Pure hypercholesterolemia acute December 29, 2024 8:58am Screening PSA (prostate specific antigen) acute December 29 8:58am Wellness examination acute Messi 2024 8:58am [facility] Work Phone: [phone]) 887-125012-29-2023 Evaluation note* Encounter Date Diagnosis Assessment Notes Treatment Notes Treatment Clinical Notes Sep, Laceration without foreign body of left middle finger without damage to nail, initial encounter (ICD-10 - S61.213A) Patient instructed to progress activity as tolerated. Instructed on scar massage and the use of anti-inflammatory medications to help with stiffness. Sep, Abrasion of left index finger, initial encounter (ICD-10 - S60.411A) Sep, Crushing injury of finger, initial encounter (ICD-10 - S67.10XA) Sep, Closed displaced fracture of middle phalanx of left middle finger, initial encounter (ICD-10 - S62.623A) Sep, Closed displaced fracture of middle phalanx of left ring finger, initial encounter (ICD-10 - S62.625A) [employer] Other 12-19-2023 Evaluation note* Encounter Date Diagnosis Assessment Notes Treatment Notes Treatment Clinical Notes Sep, Laceration without foreign body of left middle finger without damage to nail, initial encounter (ICD-10 - S61.213A) [employer] Other 11-21-2023 Evaluation note* Encounter Date Diagnosis Assessment Notes Treatment Notes Treatment Clinical Notes Aug, Laceration without foreign body of left middle finger without damage to nail, initial encounter (ICD-10 - S61.213A) Physical examination of the left hand was performed today. We discussed use of Motrin 800 mg at morning and night to help reduce stiffness of the hand. Aug, Abrasion of left index finger, initial encounter (ICD-10 - S60.411A) Aug, Crushing injury of finger, initial encounter (ICD-10 - S67.10XA) Aug, Closed displaced fracture of middle phalanx of left middle finger, initial encounter (ICD-10 - S62.623A) Aug, Closed displaced fracture of middle phalanx of left ring finger, initial encounter (ICD-10 - S62.625A) [employer] Other 10-10-2023 Evaluation note* Encounter Date Diagnosis Assessment Notes Treatment Notes Treatment Clinical Notes Jul, Laceration without foreign body of left middle finger without damage to nail, initial encounter (ICD-10 - S61.213A) Patient is progressing well. We discussed the importance of continuing to work on range of motion and strength exercise. Patient was instructed to continue use of finger sleeves as needed for swelling. Activity as tolerated. Call with any questions or concerns. Jul, Abrasion of left index finger, initial encounter (ICD-10 - S60.411A) Jul, Crushing injury of finger, initial encounter (ICD-10 - S67.10XA) Jul, Closed displaced fracture of middle phalanx of left middle finger, initial encounter (ICD-10 - S62.623A) Jul, Closed displaced fracture of middle phalanx of left ring finger, initial encounter (ICD-10 - S62.625A) [employer] Other 08-29-2023 Evaluation note* Encounter Date Diagnosis Assessment Notes Treatment Notes Treatment Clinical Notes May, Laceration without foreign body of left middle finger without damage to nail, initial encounter (ICD-10 - S61.213A) Patient returns 9 weeks s/p left hand crush injury, left long and ring finger volar lacerations, left long and ring finger volar plate avulsion fractures at middle phalanxes, left index finger abrasion, left small finger contusion ([facility] DOI 04/17/23). Patient continues to progress in occupational therapy with strength and motion. He is to continue motion and strengthening exercises at home as. Patient voices understanding and is agreeable to treatment plan. Patient may return to work at this time. May, Abrasion of left index finger, initial encounter (ICD-10 - S60.411A) May, Crushing injury of finger, initial encounter (ICD-10 - S67.10XA) May, Closed displaced fracture of middle phalanx of left middle finger, initial encounter (ICD-10 - S62.623A) May, Closed displaced fracture of middle phalanx of left ring finger, initial encounter (ICD-10 - S62.625A) [employer] Other 08-01-2023 Evaluation note* Encounter Date Diagnosis Assessment Notes Treatment Notes Treatment Clinical Notes May, Laceration without foreign body of left middle finger without damage to nail, initial encounter (ICD-10 - S61.213A) We will submit for [facility] approval for occupational therapy. Continue current work restrictions May, Abrasion of left index finger, initial encounter (ICD-10 - S60.411A) May, Crushing injury of finger, initial encounter (ICD-10 - S67.10XA) May, Closed displaced fracture of middle phalanx of left middle finger, initial encounter (ICD-10 - S62.623A) May, Closed displaced fracture of middle phalanx of left ring finger, initial encounter (ICD-10 - S62.625A) [employer] Other 07-12-2023 Evaluation note* Encounter Date Diagnosis Assessment Notes Treatment Notes Treatment Clinical Notes Apr, Laceration without foreign body of left middle finger without damage to nail, initial encounter (ICD-10 - S61.213A) Sutures removed today under clean conditions by Dr Valladares. Patient tolerated well. Instructed on continued local wound care. May work on gentle motion activities. Provided edema sleeves. Continue work restrictions as previously documented. May consider lifting work restrictions in a week or more if patient feels he is ready to return. Apr, Abrasion of left index finger, initial encounter (ICD-10 - S60.411A) Apr, Crushing injury of finger, initial encounter (ICD-10 - S67.10XA) Apr, Closed displaced fracture of middle phalanx of left middle finger, initial encounter (ICD-10 - S62.623A) Apr, Closed displaced fracture of middle phalanx of left ring finger, initial encounter (ICD-10 - S62.625A) [employer] Other 09-21-2022 Note [id number]:127[facility] 07-07-2022 Hospital Discharge instructions Patient Education 07/07/2022 08:28:02 Colonoscopy, Adult, Care After Colonoscopy, Adult, Care After This sheet gives you information about how to care for yourself after your procedure. Your health care provider may also give you more specific instructions. If you have problems or questions, contact your health care provider. What can I expect after the procedure? After the procedure, it is common to have: A small amount of blood in your stool for 24 hours after the procedure. Some gas. Mild abdominal cramping or bloating. Follow these instructions at home: General instructions For the first 24 hours after the procedure: ?Do not drive or use machinery. ?Do not sign important documents. ?Do not drink alcohol. ?Do your regular daily activities at a slower pace than normal. ?Eat soft, akkg-tp-kwyydj foods. Take wzot-xmb-snavciy or prescription medicines only as told by your health care provider. Relieving cramping and bloating Try walking around when you have cramps or feel bloated. Apply heat to your abdomen as told by your health care provider. Use a heat source that your healthcare provider recommends, such as a moist heat pack or a heating pad. ?Place a towel between your skin and the heat source. ?Leave the heat on for 20 30 minutes. ?Remove the heat if your skin turns bright red. This is especially important if you are unable to feel pain, heat, or cold. You may have a greater risk of getting burned. Eating and drinking Drink enough fluid to keep your urine pale yellow. Resume your normal diet as instructed by your health care provider. Avoid heavy or fried foods thatare hard to digest. Avoid drinking alcohol for as long as instructed by your health care provider. Contact a health care provider if: You have blood in your stool 2 3 days after the procedure. Get help right away if: You have more than a small spotting of blood in your stool. You pass large blood clots in your stool. Your abdomen is swollen. You have nausea or vomiting. You have a fever. You have increasing abdominal pain that is not relieved with medicine. Summary After the procedure, it is common to have a small amount of blood in your stool. You may also have mild abdominal cramping and bloating. For the first 24 hours after the procedure, do not drive or use machinery, sign important documents, or drink alcohol. Contact your health care provider if you have a lot of blood in your stool, nausea or vomiting, a fever, or increased abdominal pain. This information is not intended to replace advice given to you by your health care provider. Make sure you discuss any questions you have with your health care provider. Document Released: 05/19/2005 Document Revised: 07/28/2018 Document Reviewed: 12/16/2016 [employer] Patient Education 2020 [employer] Follow Up Care 06/03/2022 08:38:32 With:Josue JIM Address: [facility] [place] [address], [address] [facility] [address] [phone]- Business (1) When: only if needed [facility]08-16-2022 NoteChief Complaint consultation for screening colonoscopy HPI Staff 56 year old male presents on consultation from Dr. Marquez for screening colonoscopy. Denies abdominal or rectal pain. No rectal bleeding or change in bowel habits. Denies nausea or vomiting. No unexplained weight loss. Never had colonoscopy in the past. No known family history of colon cancer. History of Present Illness 56 yo male with h/o htn, GERD, referred for colorectal screening; denies change in bms or blood in stools; no abdominal complaints; denies asa or NSAID use, no SBE prophylaxis; abdominal operations significant for cholecystectomy and appendectomy, no previous colonoscopy; no fmhx of GI malignancy or IBD; no tobacco use. Review of Systems PHQ Score Initial Depression Screen Score: 0 ROS - Provider Constitutional: no fever, no sweats, no weight loss. Eyes: no glasses, no blurred vision, no visual loss. ENMT: no dentures, no hoarseness, no swallowing difficulties, no hearing loss, no ear infection(s),no nose bleeds. Cardiovascular: normal blood pressure, no chest pain, regular heartbeat, no heart murmur. Respiratory: no shortness of breath, no cough, no asthma, no wheezing. Gastrointestinal: no nausea, no vomiting, no diarrhea, no constipation, no blood in stool, no change in bowel habits, no abdominal pain, no hepatitis. Genitourinary: no kidney stones, no urine infection, no dysuria. Musculoskeletal: no pain, no weakness. Skin: no changing moles, no rash, no skin lumps. Neurologic: no seizures, no epilepsy, no headache. Psychiatric: no emotional or psychiatric problem. Heme/Lymph: no bleeding problems, no anemia, no blood clots, no transfusions. Allergy/Immunologic: no swollen lymph nodes/glands, no IV drug abuse. Other: Additional ROS info: Except as noted in the above Review of Systems and in the History of Present Illness, all other systems have been reviewed and are negative or noncontributory. Physical Exam Vitals & Measurements HR: 90(Peripheral) RR: 16 BP: 153/89 HT: 167.6 cm HT: 167.6 cm WT: 95.1 kg WT: 95.1 kg BMI: 33.86 HEENT: normal conjunctiva, sclera clear, no scleral icterus, EOM intact, PERRLA, oral mucosa moist without lesions. Neck: trachea midline, no mass, symmetric, no thyromegaly or nodules, no adenopathy Respiratory: lungs CTA, respirations non labored. Cardiovascular: regular rate and rhythm, no murmur, no pedal edema or varicosities. Gastrointestinal: soft, non distended, no tenderness, no masses, no palpable hernias, diastasis recti no, no hepatosplenomegaly; normal bs Lymphatic: no cervical adenopathy, Musculoskeletal: normal gait, digits and nails without infection, nodes, cyanosis, clubbing. Skin: no rashes, no lesions, no ulcers, no subcutaneous nodules, induration. Psychiatric/Neuro: oriented to time, place, person, judgement normal, affect appropriate for age, insight intact, no focal deficits. Tests: review of old records completed, Discussed surgical options, risks, and possible complications with patient. Assessment/Plan 1. Screening for malignant neoplasm of colon (Z12.11: Encounter for screening for malignant neoplasm of colon) plan colonoscopy under anesthesia, informed consent obtained. Follow-up No qualifying data available Problem List/Past Medical History Ongoing BMI 33.0-33.9,adult Chronic diarrhea GERD (gastroesophageal reflux disease) HTN (hypertension) Screening for malignant neoplasm of colon Historical Smoker Tear of anterior cruciate ligament Procedure/Surgical History Cholecystectomy (05/11/2019), Appendectomy, CLUB FOOT REPAIR, CLUB FOOT REPAIR, History of knee surgery. Medications Colestid 1 g oral tablet, 1 gm= 1 tab(s), Oral, Daily hydrochlorothiazide-losartan 12.5 mg-50 mg Tab, 1 tab(s), Oral, Daily omeprazole 40 mg Cap-DR, 40 mg= 1 cap(s), Oral, Daily Allergies lisinopril (Cough) Social History Alcohol - Denies Alcohol Use, 12/15/2011 Substance Abuse - Denies Substance Abuse, 12/15/2011 Tobacco - Denies Tobacco Use, 12/15/2011 Never (less than 100 in lifetime) Tobacco Use:. Never Smokeless Tobacco Use:., 06/03/2022 Family History Diabetes mellitus type 2: Father and Sister. Heart disease: Father. Hypertension: Sister. Multiple sclerosis: Brother. Immunizations Vaccine Date Status diphtheria/pertussis, acel/tetanus [facility] Comment: Electronically Signed By: JIM HANLEY, Josue Morales\Date and Time Signed: 06/03/22 08:40 EDTEvaluation + Plan note No data available for this section [facility] noteNo assessment information available [facility] Work Phone: Evaluation noteNortShriners [facility] [place] [employer] Other Evaluation noteNo InformationNopike [facility] [employer] Other History general Narrative - [facility]NoSpecial [facility] Hospital [employer] Other History general Narrative - Reported* Type Description Date Medical History hypertensive heart disease Medical History hypercholesterolemia Surgical History carpal tunnel release-bilat Surgical History bilat ankle surgery Surgical History ACL L knee [facility] [employer] Other Hospital Discharge instructions Additional Instructions Take the antibiotic cephalexin twice a day for 7 days Sutures can be removed 7 to 10 days Wear the finger splints you may take them off to clean your hand but did not wear them all the time Call [facility] for follow-up appointment because your fractures and lacerations Take [id number]-[id number] medicine for discomfort Return to the ER for uncontrolled bleeding uncontrolled plain redness swelling purulent drainage from your wounds or any other concernsUniversity [facility] Work Phone: Progress note No data available for this section [facility] Chief Complaint and Reason for Visit Chief Complaint r29.898 Chief Complaint L hand cut (ICO) Chief Complaint 4-6 Week Recheck Cough, Sore Throat Chief Complaint Admit Date 1 Year Follow Up October 14, 2024 7:56am Wellness December 29, 2024 8:5 8am Reason for Visit Admit Date Abrasion of left index finger, initial e ncounter October 14, 2024 7:56am Closed crushing injury of multiple finge rs October 14, 2024 7:56am Laceration of left middle fi nger w/o foreign body w/o damage to nail October 14, 2024 7:56am Essential (primary) hypertension December 172024 8:58am Otitis externa December 29, 2024 8:5 8am Pure hypercholesterolemia December 29 8:58am Screening PSA (prostate specific antigen ) December 29, 2024 8:58am Wellness examination December 29, 2024 8: 58am Advance Directives Advance Directive Response Recorded Date/ Time Advance Directives No June 13, 2022 2:37pm Advance Directive Response Recorded Date/ Time Advance Directives No June 13, 2022 1:37pm Summary Purpose Family History Relationship Condition Age at Onset Recorded Date/T fareed father Diabetes mellitus Unknown Unknown Not Specified Hypertension Unknown History of stroke Unknown sister Hypertension Unknown Relationship Condition Age at Onset Recorded Date/T fareed father Diabetes mellitus Unknown Unknown mother Hypertension Unknown History of stroke Unknown sister Hypertension Unknown Additional Source Comments Care Teams (unrecognized sec tion and content) Team Status: Inactive Member Role Status Dates Piter Chairez DO Attending Provider Active Precious Marquez MD Primary Care Provider Active Team Status: Active Member Role Status Dates Precious Marquez MD Primary Care Provider Active Team Status: Inactive Member Role Status Dates Precious Marquez MD Primary Care Provider Active Shyla Jimenez [facility] Emergency Provider Active Team Status: Inactive Member Role Status Dates Esha Valladares MD Attending Provider Active Start: October 16, 2023 End: October 16, 2023 Team Status: Inactive Member Role Status Dates Precious Marquez MD Primary Care Provider Active S tart: December 04, 2023 End: December 04, 2023 Lottie Rocha MD Attending Provider Active St art: December 04, 2023 End: December 04, 2023 Team Status: Active Member Role Status Dates Lottie Rocha MD Primary Care Provider Active Team Status: Inactive Member Role Status Paul Marquez MD Primary Care Provider Active S tart: October 14, 2024 End: October 14, 2024 Esha Valladares MD Attending Provider Active Start: October 14, 2024 End: October 14, 2024 Team Status: Active Member Role Status Dates Precious Marquez MD Primary Care Provider Active S tart: November 02, 2024 Irma Tucker DO Attending Provider Active Start: November 02, 2024 Team Status: Inactive Member Role Status Dates Lottie Rocha MD Primary Care Provide r, Attending Provider Active Start: December 29, 2024 End: December 29, 2024 Goals (unrecognized section and content) Goals may be documented in a n alternate section No data available for this sectionGoals may be documented in an alternate sectionNo InformationNo InformationNo InformationNo InformationNo InformationNo InformationNo InformationNo InformationGoals may be documented in an alternate sectionGoals may be documented in an alternate section (unrecognized sect ion and content) No Status Records FoundNo Status Records FoundNo Status Records FoundNo Status Records Found INFORMATION SOURCE (unrecogn ized section and content) DATE CREATED AUTHOR 07/22/2022 [facility] DATE CREATED AUTHOR [facility]S OR[facility]IZ AT[facility] DATE CREATED AUTHOR AUTHOR'S ORGANIZ ATION 04/23/2023 [facility] DATE CREATED AUTHOR AUTHOR'S ORGANIZ ATION 01/21/2024 [facility] REASON FOR VISIT (unrecogniz ed section and content) Recheck Left HandRecheck Lef t HandRecheck Left HandRecheck Left HandRecheck Left Handrx requestRecheck Left HandRefill FOR RECORDS PERTAINING TO PATIENTS WHO ARE OR HAVE BEEN ENROLLED IN A CHEMICAL DEPENDENCY/SUBSTANCEABUSE PROGRAM, SOME INFORMATION MAY BE OMITTED. This clinical summary was aggregated from multiple sources. Caution should be exercised in using it in the provision of clinical care. This summary normalizes information from multiple sources, and as a consequence, information in this document may materially change the coding, format and clinical context of patient data. In addition, data may be omitted in some cases. CLINICAL DECISIONS SHOULD BE BASED ON THE PRIMARY CLINICAL RECORDS. [employer] [facility]. provides no warranty or guarantee of the accuracy or completeness of information in this document.
[2024-12-30 07:13] LABS: Basophils Absolute Auto 0.1 10^3/uL (0.0-0.1); Basophils Percent Auto 1.1 % (0.2-2.0); Eosinophils Absolute Auto 0.4 10^3/uL (0.0-0.7); Eosinophils Percent Auto 4.5 % (0.9-7.0); Hematocrit 48.3 % (42.0-54.0); Hemoglobin 16.6 g/dL (14.0-18.0); Immature Granulocytes Abs Auto 0.03 10^3/uL (0.00-0.03); Immature Granulocytes Pct Auto 0.4 % (0.0-0.5); Lymphocytes Absolute Auto 2.3 10^3/uL (1.2-3.8); Lymphocytes Percent Auto 28.8 % (20.5-60.0); Mean Corpuscular HGB Conc 34.4 g/dL (29.9-35.2); Mean Corpuscular Hemoglobin 29.7 pg (25.9-34.0); Mean Corpuscular Volume 86.6 fL (80.0-94.0); Mean Platelet Volume 11.9 fL (9.5-13.5); Monocytes Absolute Auto 0.6 10^3/uL (0.3-0.8); Monocytes Percent Auto 7.7 % (1.7-12.0); Neutrophils Absolute Auto 4.6 10^3/uL (1.4-6.5); Neutrophils Percent Auto 57.5 % (43.0-75.0); Platelet Count 184 10^3/uL (150-450); Red Blood Count 5.58 10^6/uL (4.70-6.10); Red Cell Distribution Width 13.1 % (11.0-15.0); White Blood Count 8.1 10^3/uL (4.0-11.0)
[2024-12-30 11:09] LABS: Creatinine Urine Random 310.53 mg/dL (20.00-300.00); Microalbum Creatinine Ratio Ur 4.1 mg/g (0.0-29.9); Microalbumin Urine Random <1.3 mg/dL (<=30.0)
[2024-12-30 11:14] LABS: Alanine Aminotransferase 40 U/L (16-63); Albumin Globulin Ratio 1.5; Albumin Level 4.2 g/dL (3.4-5.0); Alkaline Phosphatase 64 U/L (46-116); Anion Gap 15.5; Aspartate Amino Transferase 27 U/L (15-37); BUN Creatinine Ratio 13.1; Bilirubin Total 1.1 mg/dL (0.2-1.0); Calcium 8.9 mg/dL (8.5-10.1); Carbon Dioxide 26.5 mmol/L (21.0-32.0); Chloride 104 mmol/L (98-107); Chol HDL Ratio 2.5; Cholesterol 163 mg/dL (<=200); Estimated GFR (African America >60 (>=60 mL/min/1.73m^2); Estimated GFR (Non-African Ame 57 (>=60 mL/min/1.73m^2); Globulin 2.8 g/dL; Glucose 98 mg/dL (74-106); HDL Cholesterol 64 mg/dL (40-60); Sodium 142 mmol/L (136-145); Triglycerides 70 mg/dL (<=150)
[2024-12-30 11:48] LABS: Prostate Specific Antigen Scrn 2.61 ng/mL (<=4.00)
== END 2024-12-30 06:33 | disposition home or self-care (01) ==
LOC: LAB 06:33
PROVIDERS: PCP Family Medicine; Visit Provider Family Medicine
DX: Z00.00 Encounter for general adult medical examination without abnormal findings (principal); E78.00 Pure hypercholesterolemia, unspecified; I10 Essential (primary) hypertension; Z12.5 Encounter for screening for malignant neoplasm of prostate
CPT/HCPCS: 36415; 80053; 80061; 82043; 82570; 85025; G0103